=== PATIENT | female | born 2000 | race African-American/Black ===

== ENCOUNTER 2023-01-08 08:59 | Outpatient (AMB) | payer OTHER, SELFPAY ==
--- NOTE | 2023-01-08 09:05 | MHC.PC.OV ---
Vital Signs 01/08/23 09:07 Height 5 ft 9 in Weight 344 lb BMI 50.8 BP 120/70 Blood Pressure Location Lt brachial Position Sitting Intake Visit Reasons: Entry Tech Chronic Care Follow Up ( High Chlosterol ) Intake Note: New patient, establishing care, High Cholesterol Store Assistant Required: No Accompanied by: Self / Same As Patient Allergies Penicillins Allergy (Severe, Verified 01/08/23 09:24) hives, rash Medication List - Last Reconciled 01/08/23 by Cindy Colon MD doxycycline monohydrate 100 mg PO BID pregabalin 150 mg PO BID Tobacco use date assessed: 01/08/23 Dental Screening Dental Screen Date: 01/08/23 Did you have a dental visit in the last 12 months?: Yes Did you have a dental problem in the last 6 months where you did not have access to dental care?: No Was dental information given to patient?: Patient has dentist HPI HPI Comments History of Present Illness Details This is a 22 year old female that comes for her physical exam as new patient. She is morbidly obese with a BMI 50.8 and declines weight loss surgery. Has ADD and was asking for Adderall. I advised her that at the moment I do not feel comfortable with Adderall knowing that she already has a control substance prescribed by [facility] due to her left sciatica which is pregabalin. I will give her atomoxetine. She also has history of dyslipidemia and lipid panel will be order. Pap smear will be done next week with OBGYN. She has moderate major depression follow by counseling. No suicidal thoughts. Left sciatica follow by pain management. [facility] Surgical History History of wisdom tooth extraction Family History Father Liver cirrhosis Diabetes Lois's disease Polyp of stomach Obesity Mother Hypothyroidism Mental health disorder PCOS (polycystic ovarian syndrome) Social History Housing: House Alcohol intake: current Alcohol intake frequency: a few times a month Alcohol type: other Patient Tobacco Use Status: Never used Tobacco e-Cigarette/Vaping Use: Never Used Second Hand Smoke Exposure: No service: No Current occupational status: unemployed Cognitive needs: No Hearing needs: No Vision needs: Yes Questionnaire PHQ-9 Over the last 2 weeks, how often have you been bothered by any of the following problems? 1. Little interest or pleasure in doing things: several days 2. Feeling down, depressed, or hopeless: not at all 3. Trouble falling or staying asleep, or sleeping too much: nearly every day 4. Feeling tired or having little energy: more than half the days 5. Poor appetite or overeating: several days 6. Feeling bad about yourself - or that you are a failure or have let yourself or your family down: several days 7. Trouble concentrating on things, such as reading the newspaper or watching television: nearly every day 8. Moving or speaking so slowly that other people could have noticed. Or the opposite - being so fidgety or restless that you have been moving around a lot more than usual: nearly every day 9. Thoughts that you would be better off or of hurting yourself in some way: not at all Total score: 14 Depression Screening Interpretation: Positive Depression Screening Follow-up: Existing condition and Community Mental Health Worker F/U 84236 - PHQ-9 Billing: Yes Source: Developed by Drs. Tapan Guzman, Amina Sood, Jorden Morgan and colleagues, with an educational santos from [employer]. Thrive Questionnaire Date Thrive assessed: 01/08/23 I am a: Patient What is your living situation today?: I have a steady place to live Within the past 12 months, did the food you bought not last and you didn't have the money to get more?: Never true Within the past 12 months, did you worry whether your food would run out before you got money to buy more?: Never true Do you have trouble paying for medicines?: No Do you have trouble getting transportation to medical appointments?: No Do you have trouble paying your heating and electricity bill?: No Do you have trouble taking care of your child, family member or friend?: No Do you have trouble with day-to-day activities such as bathing, preparing meals, shopping, managing finances, etc.?: No Are you currently unemployed and looking for a job?: No Are you interested in more education?: No Please select the resources that you would like help with: None Currently or been in a relationship where the following occur: no concerns reported AUDIT C Alcohol Use Questionnaire (AUDIT-C) 1. How often do you have a drink containing alcohol?: 2-4 times a month 2. How many drinks containing alcohol do you have on a typical day when you are drinking?: 1 or 2 3. How often do you have six or more drinks on one occasion?: Never Total Score: 2 Score Reviewed/Action Taken: No MIKAYLA-7 AMB Questionnaire MIKAYLA-7 Date MIKAYLA - 7 assessed: 01/08/23 Feeling nervous, anxious, or on edge: 1 = Several days Not being able to stop or control worryin = Several days Worrying too much about different things: 2 = More than half the days Trouble relaxin = Several days Being so restless that it is hard to sit still: 2 = More than half the days Becoming easily annoyed or irritable: 1 = Several days Feeling afraid as if something awful might happen: 0 = Not at all Total MIKAYLA-7 score (0-4 normal; 5-9 mild; 10-14 moderate; 15-21 severe): 8 Source: Developed by Drs. Tapan Guzman, Amina Sood, Jorden Morgan and colleagues, with an educational santos from [employer]. MIKAYLA-7 Assessment Billing MIKAYLA-7 Assessment Tool: MIKAYLA-7 Assessment 15357 Review of Systems Const All systems reviewed & are unremarkable except as noted in HPI and below Eyes Reports no additional complaints, Denies change in vision and Denies other visual disturbances Card Denies chest pain at rest, Denies chest pain with activity, Denies edema, Denies irregular heart rhythm, Denies claudication, Denies dyspnea, Denies dyspnea on exertion, Denies orthopnea, Denies paroxysmal nocturnal dyspnea and Denies slow heart rate Resp Denies cough, Denies dyspnea and Denies dyspnea on exertion GI Denies abdominal pain, Denies change in bowel habits, Denies excessive flatus, Denies nausea and Denies vomiting Denies urinary incontinence, Denies urinary hesitancy and Denies urinary urgency Musc Denies abnormal gait, Denies atrophy, Denies deformity and Denies limited range of motion Skin/Breast Denies bleeding lesions, Denies changing lesions and Denies rash Neuro Denies abnormal gait, Denies confusion and Denies lack of coordination Psych Denies confusion Physical exam (Primary Care) Vital Signs: Last Vital Signs BP 120/70 01/08/23 09:07 BMI result Body Mass Index 50.8 Tobacco/Smoking Status: Tobacco use Status Tobacco use date assessed 01/08/23 01/08/23 09:17 Patient Tobacco Use Status Never used Tobacco 01/08/23 09:17 e-Cigarette/Vaping Use Never Used 01/08/23 09:17 PHQ-9: PHQ-9 Score PHQ-9: Total score 14 01/08/23 09:17 Depression Screening Interpretation: Positive Depression Screening Follow-up: Existing condition and Community Mental Health Worker F/U Thrive Assessment: Date of Thrive Assessment Date Thrive assessed 01/08/23 01/08/23 09:17 Currently or been in a relationship where the following occur: no concerns reported Const General: No confusion Orientation/consciousness: patient oriented x3 and No confusion HENMT Head: Yes normal to inspection, Yes normocephalic and Yes atraumatic Ears: external ears normal Eyes General: appearance normal, both eyes and all related structures Eyelids: Yes eyelids normal Conjunctivae: conjunctivae normal Neck Neck: Yes normal visual inspection and Yes supple Resp Effort & Inspection: normal respiratory effort Auscultation: clear to auscultation bilaterally Cardio Jugular venous distension: no JVD Rate: regular rate Rhythm: regular rhythm Heart sounds: S1 normal heart sound present and S2 normal heart sound present GI Inspection: Yes normal to inspection Palpation (GI): Soft to palpation and nontender Auscultation: normal bowel sounds Skin General skin exam: no rashes or lesions noted Neuro General: patient oriented x3, no focal motor deficits and No confusion Extrem General: Yes full ROM Psych Appearance: grossly normal Assessment and Plan Assessment & Plan (1) Physical exam: Code(s): Z00.00 - Encounter for general adult medical examination without abnormal findings Plan: Repeat in a year (2) Morbid obesity with BMI of 50.0-59.9, adult: Code(s): E66.01 - Morbid (severe) obesity due to excess calories; Z68.43 - Body mass index [BMI] 50.0-59.9, adult Plan: Start diet and exercise. BMI goal is less than 30. Patient declines weight loss surgery. (3) Moderate major depression: Comment: Follow by behavioral therapist Code(s): F32.1 - Major depressive disorder, single episode, moderate Plan: Continue counseling. Orders: Orders Comprehensive Met. Panel Today Z00.00 - Encounter for general adult medical examination without abnormal findings Complete Blood Count Auto Diff Today E66.01 - Morbid (severe) obesity due to excess calories, Z68.43 - Body mass index [BMI] 50.0-59.9, adult Lipid Panel Today E78.5 - Hyperlipidemia, unspecified Thyroid Stimulating Hormone Today E66.01 - Morbid (severe) obesity due to excess calories, Z68.43 - Body mass index [BMI] 50.0-59.9, adult Medications: New atomoxetine 40 mg PO DAILY 90 days 90 caps 0RF F98.8 - Other specified behavioral and emotional disorders with onset usually occurring in childhood and adolescence atomoxetine 40 mg PO DAILY 90 days 90 caps 0RF F98.8 - Other specified behavioral and emotional disorders with onset usually occurring in childhood and adolescence Coding Level of Care Code New Pt Prev Care 18-39yr([id number] Diagnoses Physical exam Z00.00 Morbid obesity with BMI of 50.0-59.9, adult E66.01; Z68.43 Moderate major depression F32.1 Additional Codes MIKAYLA-7 Assessment Billing - MIKAYLA-7 Assessment Tool: MIKAYLA-7 Assessment 47951 ([id number]) Time Spent (min) 35
[2023-01-08 09:07] VITALS: BP 120/70; BMI 50.8
== END 2023-01-08 09:37 | disposition home or self-care (01) ==
PROVIDERS: PCP Internal Medicine; Visit Provider Internal Medicine
DX: Z00.00 Encounter for general adult medical examination without abnormal findings (principal); E66.01 Morbid (severe) obesity due to excess calories; Z68.43 Body mass index [BMI] 50.0-59.9, adult; F32.1 Major depressive disorder, single episode, moderate
CPT/HCPCS: 99385

== ENCOUNTER 2023-01-15 11:32 | Outpatient (REF) | payer OTHER, SELFPAY ==
[2023-01-15 13:39] LABS: MANUAL DIFF FLAG NO
[2023-01-15 13:51] LABS: Basophils Percent Auto 0.4 % (0-2); Eosinophils Absolute Auto 0.1 X10*3/uL (0.0-0.4); Hematocrit 41.4 % (37.0-47.0); Hemoglobin 13.3 g/dl (12.0-16.0); Imm Gran Abs Auto 0.03 X10*3/uL (0.00-0.03); Imm Gran Pct Auto 0.4 % (0.0-0.4); Lymphocytes Absolute Auto 2.3 X10*3/uL (1.2-4.9); Lymphocytes Percent Auto 32.2 % (20-40); Mean Corpuscular HGB Conc 32.1 g/dl (31.0-35.0); Mean Corpuscular Hemoglobin 26.7 pg (27.0-33.0); Mean Corpuscular Volume 83.1 fL (80.0-98.0); Mean Platelet Volume 9.5 fL (9.4-12.3); Monocytes Absolute Auto 0.3 X10*3/uL (0.1-1.2); Monocytes Percent Auto 4.9 % (2-11); Neutrophils Absolute Auto 4.2 x10*3/uL (2.0-8.3); Neutrophils Percent Auto 60.1 % (45-73); Platelet Count 214 X10*3/uL (160-400); Red Blood Count 4.98 X10*6/uL (4.20-5.50); Red Cell Distribution Width 13.5 % (11.0-16.0)
[2023-01-15 14:50] LABS: Alanine Aminotransferase 18 U/L (0-31); Albumin Level 4.1 g/dL (3.5-5.0); Alkaline Phosphatase 90 U/L (39-117); Anion Gap 10 (12-20); Aspartate Amino Transferase 17 U/L (5-31); Bilirubin Total 0.6 mg/dL (0.0-1.0); Blood Urea Nitrogen 15 mg/dL (9-16); Calcium 9.7 mg/dL (8.4-10.2); Carbon Dioxide 26 mmol/L (22-29); Chloride 108 mmol/L (96-108); Cholesterol 262 mg/dL (<200); Estimated Glomerular Filt Rate > 60; Glucose Random 102 mg/dL (60-115); HDL Cholesterol 39 mg/dL (>40); LDL Cholesterol Calculated 198 mg/dL (<100); Potassium 3.9 mmol/L (3.3-5.1); Sodium 140 mmol/L (135-145); Total Protein 6.7 g/dL (6.5-8.0); Triglycerides 125 mg/dL (<150)
[2023-01-15 14:52] LABS: Thyroid Stimulating Hormone 4.16 uIU/mL (0.32-4.0)
== END 2023-01-15 11:33 | disposition home or self-care (01) ==
LOC: HO.10HDL 11:32
PROVIDERS: Visit Provider Internal Medicine
DX: Z00.00 Encounter for general adult medical examination without abnormal findings (principal); E66.01 Morbid (severe) obesity due to excess calories; Z68.43 Body mass index [BMI] 50.0-59.9, adult; E78.5 Hyperlipidemia, unspecified
CPT/HCPCS: 36415; 80053; 80061; 84443; 85025

== ENCOUNTER 2023-06-27 15:31 | Outpatient (AMB) | payer OTHER, SELFPAY ==
[2023-06-27 15:36] VITALS: BP 116/72; PULSE 94; RESP 15; TEMP 36.5; O2SAT 99; BMI 50.8
--- NOTE | 2023-06-27 15:36 | A.OFFVIS_ITS ---
Intake Vital Signs 06/27/23 15:36 Height 5 ft 8 in Weight 334 lb 3.532 oz BMI 50.8 BP 116/72 Blood Pressure Location Rt brachial Position Sitting Respiration 15 Pulse 94 Pulse Source Pulse Oximeter Temp 97.7 F Temp Source Skin Pulse Oximetry (%) 99 Oxygen Delivery Method Room Air Intake Visit Reasons: Sciatica, left side Library Science Instructor Required: No Allergies amoxicillin Allergy (Severe, Verified 06/27/23 15:40) Hives Penicillins Allergy (Severe, Verified 06/27/23 15:40) hives, rash Medication List - Last Reconciled 06/27/23 by Maryana Ledezma, RN dextroamphetamine-amphetamine 15 mg ER (Adderall XR) 1 cap PO QAM fluoxetine 10 mg PO DAILY ibuprofen 800 mg PO TID HPI HPI Comments History of Present Illness Details Ms. Brooks 23-year-old female presents as a new patient for evaluation of joint pain. The patient describes that her pain has been ongoing for many years. She also has joint hypermobility. She denies joint swelling, redness and warmth. She has not had rashes, denies sun sensitivity, and autoimmune GI issues. 01/08/2023 PCP Visit This is a 22 year old female that comes for her physical exam as new patient. She is morbidly obese with a BMI 50.8 and declines weight loss surgery. Has ADD and was asking for Adderall. I advised her that at the moment I do not feel comfortable with Adderall knowing that she already has a control substance prescribed by [facility] due to her left sciatica which is pregabalin. I will give her atomoxetine. She also has history of dyslipidemia and lipid panel will be order. Pap smear will be done next week with OBGYN. She has moderate major depression follow by counseling. No suicidal thoughts. Left sciatica follow by pain management. [facility] Medical History (Updated 07/02/23 @ 16:16 by RIC Red) Hypermobile joint syndrome of multiple sites Pain in joint involving multiple sites Surgical History History of wisdom tooth extraction Family History Father Liver cirrhosis Diabetes Lois's disease Polyp of stomach Obesity Mother Hypothyroidism Mental health disorder PCOS (polycystic ovarian syndrome) Social History Housing: House Alcohol intake: current Alcohol intake frequency: a few times a month Alcohol type: other Patient Tobacco Use Status: Never used Tobacco e-Cigarette/Vaping Use: Never Used Second Hand Smoke Exposure: No service: No Current occupational status: unemployed Cognitive needs: No Hearing needs: No Vision needs: Yes Review of Systems Const All systems reviewed & are unremarkable except as noted in HPI and below Physical Exam Vital Signs: Last Vital Signs Temp 97.7 F 06/27/23 15:36 Pulse 94 06/27/23 15:36 Resp 15 06/27/23 15:36 BP 116/72 06/27/23 15:36 Pulse Ox 99 06/27/23 15:36 Oxygen Delivery Method Room Air 06/27/23 15:36 BMI result Body Mass Index 50.8 Results Reviewed Results Reviewed: Laboratory Tests 01/15/23 11:40 Creatinine 0.85 AST 17 ALT 18 Triglycerides 125 Cholesterol 262 H LDL Cholesterol, Calc 198 H HDL Cholesterol 39 L TSH 4.16 H Assessment & Plan Assessment & Plan (1) Elevated TSH: Code(s): R79.89 - Other specified abnormal findings of blood chemistry (2) Left sided sciatica: Code(s): M54.32 - Sciatica, left side (3) Morbid obesity with BMI of 50.0-59.9, adult: Code(s): E66.01 - Morbid (severe) obesity due to excess calories; Z68.43 - Body mass index [BMI] 50.0-59.9, adult (4) Pain in joint involving multiple sites: Code(s): M25.50 - Pain in unspecified joint (5) Hypermobile joint syndrome of multiple sites: Code(s): M24.80 - Other specific joint derangements of unspecified joint, not elsewhere classified Plan # multiple joint pain/hyper mobile joint/morbid obesity: After careful initial review of history, available diagnostics and PE I do not see a clinical presentation for an inflammatory pathology. I will obtain labs to evaluate further. The patient says she has had xrays of her knees that showed osteoarthritis. I do not have those available but will reach out to obtain. The patient does present like hypermobility with Beighton score 4/5. There is no real treatment for that but we did discuss the implications and recommended activities for joint preservation and encouraged her not to over stretch her joints. Patient will also do some research. Weight loss could also improve her joint concerns Patient says that her TSH is being addressed by primary. I spent 45 minutes researching history, evaluating and assessing patient, and documenting Orders: Orders Anti Extractable Nuclear Ag 06/27/23 M25.50 - Pain in unspecified joint Anti DNA DS Antibody 06/27/23 M25.50 - Pain in unspecified joint Complete Blood Count Auto Diff 06/27/23 M25.50 - Pain in unspecified joint Comprehensive Met. Panel 06/27/23 M25.50 - Pain in unspecified joint Creatine Kinase Total 06/27/23 M25.50 - Pain in unspecified joint Thiopurine Methyltransferase 06/27/23 M25.50 - Pain in unspecified joint Rheumatoid Factor 06/27/23 M25.50 - Pain in unspecified joint Cyclic Citrullinated Peptide 06/27/23 M25.50 - Pain in unspecified joint TITUS Reflex Titer and Pattern 06/27/23 M25.50 - Pain in unspecified joint C Reactive Protein 06/27/23 M25.50 - Pain in unspecified joint Erythrocyte Sedimentation Rate 06/27/23 M25.50 - Pain in unspecified joint Immunoglobulins,IgG IgA IgM 06/27/23 M25.50 - Pain in unspecified joint Sjogren's Antibodies 06/27/23 M25.50 - Pain in unspecified joint Coding Level of Care Code New Pt Level 4 (59707) Diagnoses Elevated TSH R79.89 Left sided sciatica M54.32 Morbid obesity with BMI of 50.0-59.9, adult E66.01; Z68.43 Pain in joint involving multiple sites M25.50 Hypermobile joint syndrome of multiple sites M24.80
== END 2023-06-27 16:43 | disposition home or self-care (01) ==
PROVIDERS: PCP Internal Medicine; Visit Provider Nurse Practitioner Family
DX: R79.89 Other specified abnormal findings of blood chemistry (principal); M54.32 Sciatica, left side; E66.01 Morbid (severe) obesity due to excess calories; Z68.43 Body mass index [BMI] 50.0-59.9, adult; M25.50 Pain in unspecified joint; M24.80 Other specific joint derangements of unspecified joint, not elsewhere classified
CPT/HCPCS: 99204

== ENCOUNTER → 2023-06-27 15:31 | Outpatient (BNVA) | payer OTHER, SELFPAY | PROVIDERS: PCP Internal Medicine; Visit Provider Nurse Practitioner Family | DX: M54.32 Sciatica, left side (principal); M25.50 Pain in unspecified joint; M24.80 Other specific joint derangements of unspecified joint, not elsewhere classified; E66.01 Morbid (severe) obesity due to excess calories; R79.89 Other specified abnormal findings of blood chemistry; Z68.43 Body mass index [BMI] 50.0-59.9, adult | CPT/HCPCS: 99202 ==

== ENCOUNTER 2023-07-05 09:37 | Outpatient (REF) | payer OTHER, SELFPAY ==
[2023-07-05 11:16] LABS: MANUAL DIFF FLAG NO
[2023-07-05 11:44] LABS: Basophils Percent Auto 0.3 % (0-2); Eosinophils Absolute Auto 0.2 X10*3/uL (0.0-0.4); Eosinophils Percent Auto 2.3 % (0-4); Hematocrit 39.2 % (37.0-47.0); Hemoglobin 12.6 g/dl (12.0-16.0); Imm Gran Abs Auto 0.03 X10*3/uL (0.00-0.03); Imm Gran Pct Auto 0.5 % (0.0-0.4); Lymphocytes Absolute Auto 1.6 X10*3/uL (1.2-4.9); Lymphocytes Percent Auto 24.5 % (20-40); Mean Corpuscular HGB Conc 32.1 g/dl (31.0-35.0); Mean Corpuscular Hemoglobin 25.9 pg (27.0-33.0); Mean Corpuscular Volume 80.5 fL (80.0-98.0); Monocytes Absolute Auto 0.3 X10*3/uL (0.1-1.2); Monocytes Percent Auto 3.9 % (2-11); Neutrophils Absolute Auto 4.6 x10*3/uL (2.0-8.3); Neutrophils Percent Auto 68.5 % (45-73); Platelet Count 237 X10*3/uL (160-400); Red Blood Count 4.87 X10*6/uL (4.20-5.50); Red Cell Distribution Width 13.9 % (11.0-16.0); White Blood Count 6.7 X10*3/uL (4.8-10.8)
[2023-07-05 11:48] LABS: Erythrocyte Sedimentation Rate 23 MM/HR (0-20)
[2023-07-05 12:04] LABS: Rheumatoid Factor < 13.0 IU/mL (<15.0)
[2023-07-05 12:37] LABS: Anion Gap 10 (12-20); Free T4 (Free Thyroxine) 0.92 ng/dL (0.71-1.85); Thyroid Stimulating Hormone 4.07 uIU/mL (0.32-4.0)
[2023-07-05 12:42] LABS: Alanine Aminotransferase 14 U/L (0-31); Albumin Level 3.8 g/dL (3.5-5.0); Alkaline Phosphatase 100 U/L (39-117); Aspartate Amino Transferase 12 U/L (5-31); Bilirubin Total 0.4 mg/dL (0.0-1.0); Blood Urea Nitrogen 13 mg/dL (9-16); C Reactive Protein 2.43 mg/dL (< or = 0.50); Calcium 8.9 mg/dL (8.4-10.2); Carbon Dioxide 26 mmol/L (22-29); Chloride 108 mmol/L (96-108); Estimated Glomerular Filt Rate > 60; Glucose Random 110 mg/dL (60-115); Potassium 3.9 mmol/L (3.3-5.1); Sodium 140 mmol/L (135-145); Total Protein 6.5 g/dL (6.5-8.0)
[2023-07-06 17:14] LABS: IgA 50 mg/dL (47-310); IgG 738 mg/dL (600-1640); IgM 61 mg/dL (50-300)
[2023-07-06 18:09] LABS: Anti DNA DS Antibody <1 IU/mL; Antibody to SS-A Antigen <1.0 NEG AI (<1.0 NEG); Antibody to SS-B Antigen <1.0 NEG AI (<1.0 NEG); SM/Ribonucleoprotein Ab <1.0 NEG AI (<1.0 NEG); Smith Protein <1.0 NEG AI (<1.0 NEG)
[2023-07-06 23:54] LABS: Thyroglobulin Antibodies 1 IU/mL (< or = 1); Thyroid Peroxidase Antibodies 49 IU/mL (<9)
[2023-07-10 15:24] LABS: Anti Nuclear Antibody Pattern Nuclear, Homogeneous; Anti Nuclear Antibody Screen POSITIVE (NEGATIVE)
[2023-07-11 11:23] LABS: Cyclic Citrullinated Peptide <16 UNITS
[2023-07-26 12:48] LABS: TPMT Activity 15
== END 2023-07-05 09:38 | disposition home or self-care (01) ==
LOC: HO.WFDLDS 09:37
PROVIDERS: Referring Provider Internal Medicine; Visit Provider Nurse Practitioner Family
DX: R79.89 Other specified abnormal findings of blood chemistry (principal); M25.50 Pain in unspecified joint
CPT/HCPCS: 36415; 80053; 82550; 82784; 84433; 84439; 84443; 85025; 85652; 86038; 86039; 86140; 86200; 86225; 86235; 86376; 86431; 86800

== ENCOUNTER 2023-07-26 10:17 | Outpatient (AMB) | payer OTHER, SELFPAY ==
--- NOTE | 2023-07-26 10:18 | A.OFFVIS_ITS ---
Intake Vital Signs 07/26/23 10:24 Height 5 ft 8 in Weight 336 lb 10.334 oz BMI 51.2 BP 100/80 Blood Pressure Location Rt brachial Position Sitting Pulse 94 Pulse Source Pulse Oximeter Temp 97 F Temp Source Skin Pulse Oximetry (%) 94 Oxygen Delivery Method Room Air Intake Visit Reasons: Joint Pain/LVM Intake Note: Patient last seen 06/27/23 by Hoang, presents today for follow up and test results. Crystalizer Tender Required: No Allergies amoxicillin Allergy (Severe, Verified 07/26/23 10:18) Hives Penicillins Allergy (Severe, Verified 07/26/23 10:18) hives, rash HPI HPI Comments History of Present Illness Details Ms. Cecilia Starks-year-old female returns to review labs and next steps. She had no new hospitalization or illnesses since last visit. Initial History: Ms. Cecilia Starks-year-old female presents as a new patient for evaluation of joint pain. The patient describes that her pain has been ongoing for many years. She also has joint hypermobility. She denies joint swelling, redness and warmth. She has not had rashes, denies sun sensitivity, and autoimmune GI issues. 01/08/2023 PCP Visit This is a 22 year old female that comes for her physical exam as new patient. She is morbidly obese with a BMI 50.8 and declines weight loss surgery. Has ADD and was asking for Adderall. I advised her that at the moment I do not feel comfortable with Adderall knowing that she already has a control substance prescribed by [facility] due to her left sciatica which is pregab julia. I will give her atomoxetine. She also has history of dyslipidemia and lipid panel will be order. Pap smear will be done next week with OBGYN. She has moderate major depression follow by counseling. No suicidal thoughts. Left sciatica follow by pain management. 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 Pain in joint involving multiple sites Surgical History History of wisdom tooth extraction Family History Father Liver cirrhosis Diabetes Lois's disease Polyp of stomach Obesity Mother Hypothyroidism Mental health disorder PCOS (polycystic ovarian syndrome) Social History Housing: House Alcohol intake: current Alcohol intake frequency: a few times a month Alcohol type: other Patient Tobacco Use Status: Never used Tobacco e-Cigarette/Vaping Use: Never Used Second Hand Smoke Exposure: No service: No Current occupational status: unemployed Cognitive needs: No Hearing needs: No Vision needs: Yes Review of Systems Const All systems reviewed & are unremarkable except as noted in HPI and below Physical Exam Vital Signs: Last Vital Signs Temp 97 F 07/26/23 10:24 Pulse 94 07/26/23 10:24 BP 100/80 07/26/23 10:24 Pulse Ox 94 07/26/23 10:24 Oxygen Delivery Method Room Air 07/26/23 10:24 BMI result Body Mass Index 51.2 Vital signs reviewed. Constitutional: Non-toxic appearing. No acute distress. Well-developed and well-nourished. HEENT: Normocephalic and atraumatic. External auditory canals without erythema or edema bilaterally. Dry mucous membranes. No pharyngeal erythema or exudates. Skin: Warm and dry. No rashes or lesions noted. Neck: Full and painless range of motion. No cervical lymphadenopathy. Cardio: Regular rate and rhythm. No murmurs, gallops, or rubs. No lower extremity edema. No JVD. Pulmonary: No respiratory distress. No accessory muscle usage. Gastrointestinal: Soft, nontender, and nondistended in all 4 quadrants. Normoactive bowel sounds in all 4 quadrants. Genitourinary: No CVA tenderness. Musculoskeletal: Normal range of motion in joints throughout the body. knee valgus deformity . Neuro: Alert and oriented x4. Cranial nerves 2-12 grossly intact. No focal deficits appreciated. Results Reviewed Results Reviewed: Laboratory Tests 07/05/23 09:40 ESR 23 H AST 12 ALT 14 C-Reactive Protein 2.43 H IgG Total 738 IgA Total 50 IgM 61 Rheumatoid Factor < 13.0 CINDY Titer 1:80 H Thyroid Peroxidase Ab 49 H Assessment & Plan Assessment & Plan (1) Elevated TSH: Code(s): R79.89 - Other specified abnormal findings of blood chemistry (2) Left sided sciatica: Code(s): M54.32 - Sciatica, left side (3) Morbid obesity with BMI of 50.0-59.9, adult: Code(s): E66.01 - Morbid (severe) obesity due to excess calories; Z68.43 - Body mass index [BMI] 50.0-59.9, adult (4) Pain in joint involving multiple sites: Code(s): M25.50 - Pain in unspecified joint (5) Hypermobile joint syndrome of multiple sites: Code(s): M24.80 - Other specific joint derangements of unspecified joint, not elsewhere classified Plan #Multiple joint pain/hyper mobile joint/morbid obesity: After careful initial review of history, available diagnostics and PE, I do not see a clinical presentation for an inflammatory pathology. Labs are +CINDY (1:80) most likely due to +TPO and ENAs are negative. The ESR/CRP are elevated and the TSH remains mildy elevated. Patient reports she was diagnosed with Hashimotos during childhood but has never been treated. She desires to be seen by Endocrine. PCP has a recheck of TSH pending. She will also look into being referred to a Music Industry Internship and will pursue with PCP. I spent 20 minutes reviewing labs, discussing with patient, and documenting. P/u PRN Orders: Referrals Endocrinology Referral R53.81 - Other malaise, R53.82 - Chronic fatigue, unspecified, R76.8 - Other specified abnormal immunological findings in serum, Z86.39 - Personal history of other endocrine, nutritional and metabolic disease Coding Level of Care Code Est Pt Level 3 (85855) Diagnoses Elevated TSH R79.89 Left sided sciatica M54.32 Morbid obesity with BMI of 50.0-59.9, adult E66.01; Z68.43 Pain in joint involving multiple sites M25.50 Hypermobile joint syndrome of multiple sites M24.80
[2023-07-26 10:24] VITALS: BP 100/80; PULSE 94; TEMP 36.1; O2SAT 94; BMI 51.2
== END 2023-07-26 10:39 | disposition home or self-care (01) ==
PROVIDERS: PCP Internal Medicine; Visit Provider Nurse Practitioner Family
DX: R79.89 Other specified abnormal findings of blood chemistry (principal); M54.32 Sciatica, left side; E66.01 Morbid (severe) obesity due to excess calories; Z68.43 Body mass index [BMI] 50.0-59.9, adult; M25.50 Pain in unspecified joint; M24.80 Other specific joint derangements of unspecified joint, not elsewhere classified
CPT/HCPCS: 99213

== ENCOUNTER → 2023-07-26 10:17 | Outpatient (BNVA) | payer OTHER, SELFPAY | PROVIDERS: PCP Internal Medicine; Visit Provider Nurse Practitioner Family | DX: R79.89 Other specified abnormal findings of blood chemistry (principal); M54.32 Sciatica, left side; M25.50 Pain in unspecified joint; M24.80 Other specific joint derangements of unspecified joint, not elsewhere classified; E66.01 Morbid (severe) obesity due to excess calories; Z68.43 Body mass index [BMI] 50.0-59.9, adult | CPT/HCPCS: 99212 ==

== ENCOUNTER 2023-08-17 08:42 | Outpatient (AMB) | payer OTHER, SELFPAY ==
--- NOTE | 2023-08-17 08:50 | A.OFFPC_ITS ---
Vital Signs 08/17/23 09:00 Height 5 ft 9 in Weight 337 lb BMI 49.8 BP 111/73 Blood Pressure Location Rt brachial Position Sitting Respiration 11 L Pulse 77 Pulse Source Pulse Oximeter Temp 98.4 F Temp Source Temporal Artery Scan Pulse Oximetry (%) 98 Oxygen Delivery Method Room Air Intake Visit Reasons: FELIX from Ok Intake Note: Patient is transferring care from Dr. Euceda to Raine Callahan. Patient reports she had been discussing roddy danlos syndrome with Dr. Euceda and she wanted to continue discussing this with new provider. Patient reports she is seeing a psychiatrist with [facility]. Check Totaler Required: No Allergies amoxicillin Allergy (Severe, Verified 08/17/23 09:20) Hives Penicillins Allergy (Severe, Verified 08/17/23 09:20) hives, rash Medication List - Last Reconciled 08/17/23 by Raine Feldman, HUMANITIES PROFESSOR-BC dextroamphetamine-amphetamine 15 mg ER (Adderall XR) 1 cap PO QAM fluoxetine 10 mg PO DAILY ibuprofen 800 mg PO TID levonorgestrel (Liletta) intrauterine Tobacco use date assessed: 08/17/23 Dental Screening Dental Screen Date: 08/17/23 Did you have a dental visit in the last 12 months?: Yes Did you have a dental problem in the last 6 months where you did not have access to dental care?: No Was dental information given to patient?: Patient has dentist HPI HPI Comments History of Present Illness Details 23-year-old female with Roddy Danlos Sy ndrome, MDD, ADD, dyslipidemia, obesity suppurative hidradenitis, sciatica, TITUS positive, PCOS, generalized anxiety disorder, PTSD, recurrent syncope idiopathic intracranial hypertension Specialists Neurology - no longer following Rheumatology - no longer following [facility] in [place], [employer] Endocrinology - [facility] Ophthalmology q 6 months Health maintenance pap Labs from 07/05/2023 show a normal CBC, elevated ESR at 23, normal CMP, elevated C-reactive protein 2.43, TSH 4.07, normal T4 0.92 positive TITUS and TPO antibodies Lipid profile 01/15/2023 show elevated total cholesterol 262, LDL 198, HDL 39 Here today to est care for a CPE: Life long hypermobility; frequent dislocations of most joints; chronic pain in joints. Treated for hernia disc causing sciatica. This helped the sciatica but not her other joint pain. Has never seen genetics. States Maternal side of family has similar sx; has never been tested for EDS. Reports Echo done and WNL as far as she is aware; i do not have this record. September 2022 while hospitalized for syncope. Also has recurrent syncope. Last hospital admission 04/2023. Is not active w/ Cards at this time Was ff'd by [facility] - aged out. Not currently being ff'd for her intracranial htn. q 6 month Optho appts; No migraines. Admits stress/tensions headaches. Has diarrhea at times. [facility] Medical History Chronic fatigue and malaise Thyroid antibody positive Hx of Lois thyroiditis Hypermobile joint syndrome of multiple sites Pain in joint involving multiple sites Surgical History History of wisdom tooth extraction Family History Father Liver cirrhosis Diabetes Lois's disease Polyp of stomach Obesity Mother Hypothyroidism Mental health disorder PCOS (polycystic ovarian syndrome) Social History (Updated 08/17/23 @ 08:56 by Sarahy Pena CMA) Household Members: Family Housing: House Are you a primary home health care worker to a significant other at home: No Do you presently have visiting nurse or other home services: No 75 years or older and lives alone: No Alcohol intake: current Alcohol intake frequency: a few times a month Alcohol type: other Patient Tobacco Use Status: Never used Tobacco e-Cigarette/Vaping Use: Never Used Second Hand Smoke Exposure: No Substance Use Type: Marijuana service: No Current occupational status: unemployed Current occupation: Laid off from [employer] Current occupational exposures/hazards: No Cognitive needs: No Hearing needs: No Vision needs: Yes (wears glasses) Questionnaire PHQ-9 Over the last 2 weeks, how often have you been bothered by any of the following problems? 1. Little interest or pleasure in doing things: several days 2. Feeling down, depressed, or hopeless: not at all 3. Trouble falling or staying asleep, or sleeping too much: more than half the days 4. Feeling tired or having little energy: more than half the days 5. Poor appetite or overeating: not at all 6. Feeling bad about yourself - or that you are a failure or have let yourself or your family down: not at all 7. Trouble concentrating on things, such as reading the newspaper or watching television: nearly every day 8. Moving or speaking so slowly that other people could have noticed. Or the opposite - being so fidgety or restless that you have been moving around a lot more than usual: not at all 9. Thoughts that you would be better off or of hurting yourself in some wa y: not at all Total score: 8 Depression Screening Interpretation: Positive Depression Screening Follow-up: Existing condition and In treatment Depression Screening Done: Yes 35467 - PHQ-9 Billing: Yes Source: Developed by Drs. Tapan Guzman, Amina Sood, Jorden Morgan and colleagues, with an educational santos from [employer]. Thrive Questionnaire Date Thrive assessed: 01/08/23 I am a: Patient What is your living situation today?: I have a place to live, but I am worried about losing it in the future Within the past 12 months, did the food you bought not last and you didn't have the money to get more?: Sometimes True Within the past 12 months, did you worry whether your food would run out before you got money to buy more?: Often true Do you have trouble paying for medicines?: I choose not to answer this question Do you have trouble getting transportation to medical appointments?: I choose not to answer this question Do you have trouble paying your heating and electricity bill?: I choose not to answer this question Do you have trouble taking care of your child, family member or friend?: I choose not to answer this question Do you have trouble with day-to-day activities such as bathing, preparing meals, shopping, managing finances, etc.?: I choose not to answer this question Are you currently unemployed and looking for a job?: I choose not to answer this question Are you interested in more education?: I choose not to answer this question Please select the resources that you would like help with: None Currently or been in a relationship where the following occur: no concerns reported THRIVE Score: 3 AUDIT C Alcohol Use Questionnaire (AUDIT-C) 1. How often do you have a drink containing alcohol?: Monthly or less 2. How many drinks containing alcohol do you have on a typical day when you are drinking?: 1 or 2 3. How often do you have six or more drinks on one occasion?: Never Total Score: 1 Score Reviewed/Action Taken: Yes MIKAYLA-7 AMB Questionnaire MIKAYLA-7 Date MIKAYLA - 7 assessed: 08/17/23 Feeling nervous, anxious, or on edge: 1 = Several days Not being able to stop or control worryin = Several days Worrying too much about different things: 1 = Several days Trouble relaxin = More than half the days Being so restless that it is hard to sit still: 1 = Several days Becoming easily annoyed or irritable: 1 = Several days Feeling afraid as if something awful might happen: 2 = More than half the days Total MIKAYLA-7 score (0-4 normal; 5-9 mild; 10-14 moderate; 15-21 severe): 9 Source: Developed by Drs. Tapan Guzman, Amina Sood, Jorden Morgan and colleagues, with an educational santos from [employer]. MIKAYLA-7 Assessment Billing MIKAYLA-7 Assessment Tool: MIKAYLA-7 Assessment 42655 Review of Systems Const Details: Constitutional: Denies fever. Skin: Denies rash. Eye: Denies eye pain. ENMT: Denies sore throat and nasal congestion. Respiratory: Denies shortness of breath and cough. Gastrointestinal: Denies nausea, vomiting or abdominal pain. Cardiovascular: Denies chest pain and syncope. Genitourinary: Denies dysuria. Neurologic: Denies headaches, confusion, and weakness. Psychiatric: Denies suicidal thoughts and substance abuse. Allergy/ Immunologic: Denies impaired immunity. Physical exam (Primary Care) Vital Signs: Last Vital Signs Temp 98.4 F 08/17/23 09:00 Pulse 77 08/17/23 09:00 Resp 11 L 08/17/23 09:00 BP 111/73 08/17/23 09:00 Pulse Ox 98 08/17/23 09:00 Oxygen Delivery Method Room Air 08/17/23 09:00 BMI result Body Mass Index 49.8 BMI Assessment/Plan discussion: High BMI High, discussed plan: lifestyle Tobacco/Smoking Status: Tobacco use Status Tobacco use date assessed 08/17/23 08/17/23 08:54 Patient Tobacco Use Status Never used Tobacco 08/17/23 08:56 e-Cigarette/Vaping Use Never Used 08/17/23 08:56 PHQ-9: PHQ-9 Score PHQ-9: Total score 8 08/17/23 08:58 Depression Screening Interpretation: Positive Depression Screening Follow-up: Existing condition and In treatment Thrive Assessment: Date of Thrive Assessment Date Thrive assessed 01/08/23 08/17/23 08:54 Currently or been in a relationship where the following occur: no concerns reported Advance Care Planning discussion: Exists, not on file Date of discussion: 08/17/23 Forms completed: Health Care Proxy and MOLST Time spent: 1-15 minutes, not on file Actual minutes spent: 3 Const Other: General: Well developed, well nourished, in no acute distress. Appears stated age. Head: Normocephalic, atraumatic. Eyes: Pupils are equal, round and reactive to light and accommodation. Conjunctivae are clear. Vision grossly normal. Ears: TMs clear AU, EACS WNL Nose: Patent, without discharge. Mouth: There are no ulcers or lesions noted. No inflammation, no post nasal drip, no plaques nor exudates. Neck: Supple, no adenopathy or thyromegaly. Lungs: Clear to auscultation bilaterally. No rales, rhonchi or wheeze noted. Good air flow in all keyes. Heart: Regular rate and rhythm. No murmurs, click, rubs or gallops are noted. Abdomen: Bowel sounds present in all quadrants. DURING PALPATION OF RUQ, PT C/O PAIN. THIS IS IN AN AREA WHERE I CAN PALPATE A FIRM, NONMOBILE MASS, BELOW THE RIB CAGE. THERE IS SOME CREPITUS WITH PALPATION. NO REBOUND TENDERNESS. NO EPIGASTRIC TENDERNESS. NO HERNIA. Musculoskeletal: Joints are TENDER AND HYPERMOBILE, without swelling, redness, or effusions. Range of motion is observed to be HYPERMOBILE. Pulses: Peripheral pulses are equal and palpable bilaterally. Extremities: No clubbing, cyanosis nor edema is noted. Neurologic: Gait and station normal. Cranial Nerves 2-12 intact. Motor strength grossly symmetrical and intact. No sensory loss. Balance normal. Skin: No rashes, ulcers, or lesions noted. Turgor is good. Skin color is good. Hair and nails are without abnormalities. Psych: Normal eye contact, affect and mood appropriate, and normal interactions. Patient is alert and appropriate to context. Assessment and Plan Assessment & Plan (1) Encounter for general adult medical examination with abnormal findings: Code(s): Z00.01 - Encounter for general adult medical examination with abnormal findings (2) Syncope and collapse: Comment: ongoing for years, worse since onset. Echo UTD. Has never had tilt table Will order. Advised to drink at least 3L of liquids, preferably fluid with Na+ like gatorade and wear tight compression leggings; slow position changes. Code(s): R55 - Syncope and collapse (3) Dyslipidemia: Comment: update Lipid profile today Code(s): E78.5 - Hyperlipidemia, unspecified (4) Hx of Lois thyroiditis: Comment: check TSH today ff'd by Endo Code(s): Z86.39 - Personal history of other endocrine, nutritional and metabolic disease (5) RUQ abdominal mass: Comment: incidental finding on exam today with pain. Check labs and order US. If needed, check CT. Will bring back to discuss findings Code(s): R19.01 - Right upper quadrant abdominal swelling, mass and lump (6) Hypermobile joint syndrome of multiple sites: Comment: concerning picture for EDS [facility] in [place] is not accepting patients for screening. They recommend using [facility] labs. Pt is agreeable to genetic workup through [facility] Code(s): M24.80 - Other specific joint derangements of unspecified joint, not elsewhere classified (7) Pain in joint involving multiple sites: Comment: see Hypermobile care plan Code(s): M25.50 - Pain in unspecified joint (8) Moderate major depression: Comment: Follow by behavioral therapist & counselor Cont care Code(s): F32.1 - Major depressive disorder, single episode, moderate Plan 30 minutes of time was spent above and beyond the required time needed for a We llness Physical Exam. This additional time was used to develop a plan of care, discuss findings with patient, etc. This includes time spent before the visit reviewing the chart, time spent during the visit, and time spent after the visit on documentation Orders: Orders ECG Tilt Table Test Today R55 - Syncope and collapse Amylase Today E78.5 - Hyperlipidemia, unspecified, R19.01 - Right upper quadrant abdominal swelling, mass and lump, R55 - Syncope and collapse, Z86.39 - Personal history of other endocrine, nutritional and metabolic disease Complete Blood Count no Diff Today E78.5 - Hyperlipidemia, unspecified, R19.01 - Right upper quadrant abdominal swelling, mass and lump, R55 - Syncope and collapse, Z86.39 - Personal history of other endocrine, nutritional and metabolic disease IRON PROFILE Today E78.5 - Hyperlipidemia, unspecified, R19.01 - Right upper quadrant abdominal swelling, mass and lump, R55 - Syncope and collapse, Z86.39 - Personal history of other endocrine, nutritional and metabolic disease TSH reflex Free T4 Today E78.5 - Hyperlipidemia, unspecified, R19.01 - Right upper quadrant abdominal swelling, mass and lump, R55 - Syncope and collapse, Z86.39 - Personal history of other endocrine, nutritional and metabolic disease Vitamin D 1,25 dihydroxy Today E78.5 - Hyperlipidemia, unspecified, R19.01 - Right upper quadrant abdominal swelling, mass and lump, R55 - Syncope and collapse, Z86.39 - Personal history of other endocrine, nutritional and metabolic disease Vitamin B12 and Folate Today E78.5 - Hyperlipidemia, unspecified, R19.01 - Right upper quadrant abdominal swelling, mass and lump, R55 - Syncope and collapse, Z86.39 - Personal history of other endocrine, nutritional and metabol ic disease US abdomen complete Today E78.5 - Hyperlipidemia, unspecified, R19.01 - Right upper quadrant abdominal swelling, mass and lump, R55 - Syncope and collapse, Z86.39 - Personal history of other endocrine, nutritional and metabolic disease Lipase Today E78.5 - Hyperlipidemia, unspecified, R19.01 - Right upper quadrant abdominal swelling, mass and lump, R55 - Syncope and collapse, Z86.39 - Personal history of other endocrine, nutritional and metabolic disease Comprehensive Met. Panel Today E78.5 - Hyperlipidemia, unspecified, R19.01 - Right upper quadrant abdominal swelling, mass and lump, R55 - Syncope and collapse, Z86.39 - Personal history of other endocrine, nutritional and metabolic disease AMB Hemoglobin A1c Today E78.5 - Hyperlipidemia, unspecified, R19.01 - Right upper quadrant abdominal swelling, mass and lump, R55 - Syncope and collapse, Z13.9 - Encounter for screening, unspecified, Z86.39 - Personal history of other endocrine, nutritional and metabolic disease Lipid Panel Today E78.5 - Hyperlipidemia, unspecified Patient Instructions: RTO IN 2 WEEKS TO DISCUSS FINDINGS ON US AND DISCUSS LAB RESULTS, SOONER PRN Coding Level of Care Code Est Pt Level 4 (19615) Est Pt Prev Care 18-39y(77073) Diagnoses Encounter for general adult medical examination with abnormal findings Z00.01 Syncope and collapse R55 Dyslipidemia E78.5 Hx of Lois thyroiditis Z86.39 RUQ abdominal mass R19.01 Hypermobile joint syndrome of multiple sites M24.80 Pain in joint involving multiple sites M25.50 Moderate major depression F32.1 Additional Codes MIKAYLA-7 Assessment Billing - MIKAYLA-7 Assessment Tool: MIKAYLA-7 Assessment 70405 ([id number]) Vital Signs *Quality* - Advance Care Planning discussion: Exists, not on file ([id number]) Vital Signs *Quality* - Time spent: 1-15 minutes, not on file ([id number])
[2023-08-17 09:00] VITALS: BP 111/73; PULSE 77; RESP 11; TEMP 36.9; O2SAT 98; BMI 49.8
== END 2023-08-17 09:51 | disposition home or self-care (01) ==
PROVIDERS: PCP Nurse Practitioner Family; Visit Provider Nurse Practitioner Family
DX: Z00.01 Encounter for general adult medical examination with abnormal findings (principal); R55 Syncope and collapse; E78.5 Hyperlipidemia, unspecified; F32.1 Major depressive disorder, single episode, moderate; Z86.39 Personal history of other endocrine, nutritional and metabolic disease; R19.01 Right upper quadrant abdominal swelling, mass and lump; M24.80 Other specific joint derangements of unspecified joint, not elsewhere classified; M25.50 Pain in unspecified joint
CPT/HCPCS: 1124F; 99214; 99395

== ENCOUNTER 2023-08-17 09:42 | Outpatient (REF) | payer OTHER, SELFPAY ==
[2023-08-17 12:05] LABS: Hematocrit 41.7 % (37.0-47.0); Hemoglobin 13.3 g/dl (12.0-16.0); Mean Corpuscular HGB Conc 31.9 g/dl (31.0-35.0); Mean Corpuscular Hemoglobin 25.7 pg (27.0-33.0); Mean Corpuscular Volume 80.5 fL (80.0-98.0); Mean Platelet Volume 9.2 fL (9.4-12.3); Platelet Count 253 X10*3/uL (160-400); Red Blood Count 5.18 X10*6/uL (4.20-5.50); White Blood Count 7.5 X10*3/uL (4.8-10.8)
[2023-08-17 12:41] LABS: Alanine Aminotransferase 19 U/L (0-31); Albumin Level 4.2 g/dL (3.5-5.0); Alkaline Phosphatase 104 U/L (39-117); Amylase 42 U/L (28-100); Anion Gap 10 (12-20); Aspartate Amino Transferase 14 U/L (5-31); Bilirubin Total 0.6 mg/dL (0.0-1.0); Blood Urea Nitrogen 16 mg/dL (9-16); Calcium 9.6 mg/dL (8.4-10.2); Carbon Dioxide 27 mmol/L (22-29); Chloride 108 mmol/L (96-108); Cholesterol 238 mg/dL (<200); Estimated Glomerular Filt Rate > 60; Glucose Random 107 mg/dL (60-115); HDL Cholesterol 38 mg/dL (>40); Iron 49 mcg/dL (30-160); LDL Cholesterol Calculated 172 mg/dL (<100); Lipase 14 U/L (8-78); Percent Iron Saturation 17 % (15-50); Potassium 4.1 mmol/L (3.3-5.1); Sodium 141 mmol/L (135-145); Total Iron Binding Capacity 290 mcg/dL (228-428); Triglycerides 142 mg/dL (<150); Unsaturated Iron Binding 241 ug/dL
[2023-08-17 12:59] LABS: TSH reflex Free T4 4.85 uIU/mL (0.32-4.0)
[2023-08-17 14:49] LABS: Free T4 (Free Thyroxine) 0.85 ng/dL (0.71-1.85)
[2023-08-17 20:09] LABS: Folate 4.8 ng/mL (> or = 4.0)
[2023-08-19 00:46] LABS: Vitamin B12 405 pg/mL (200-900)
[2023-08-21 17:13] LABS: VITAMIN D (1,25 OH) D3 34 pg/mL; Vit D (1,25-Dihydroxy) Total 34 pg/mL (18-72); Vitamin D (1,25 OH) D2 <8 pg/mL
== END 2023-08-17 09:43 | disposition home or self-care (01) ==
LOC: HO.WFDLDS 09:42
PROVIDERS: Visit Provider Nurse Practitioner Family
DX: R19.01 Right upper quadrant abdominal swelling, mass and lump (principal); R55 Syncope and collapse; E78.5 Hyperlipidemia, unspecified; Z86.39 Personal history of other endocrine, nutritional and metabolic disease
CPT/HCPCS: 36415; 80053; 80061; 82150; 82607; 82652; 82746; 83540; 83690; 84439; 84443; 85027

== ENCOUNTER 2023-09-04 08:15 | Outpatient (REF) | payer OTHER, SELFPAY ==
--- NOTE | ~2023-09-04 | US_ITS ---
EXAMINATION: US ABDOMEN COMPLETE CLINICAL INFORMATION: Right upper quadrant pain, swelling, mass and lump. COMPARISON: None available. TECHNIQUE: Real-time imaging of the abdominal viscera. Study limited due to patient body habitus. FINDINGS: PANCREAS: Visualized pancreas is unremarkable. ABDOMINAL AORTA: The proximal, mid, and distal segments are normal in caliber. INFERIOR VENA CAVA: Visualized portions are normal. LIVER: Diffuse increased echogenicity to the liver parenchyma. No focal hepatic lesion. There is no intrahepatic biliary duct dilatation seen. GALLBLADDER: Normal. The gallbladder is physiologically distended without evidence of stones, sludge, polyps, wall thickening or pericholecystic fluid. COMMON BILE DUCT: Normal in caliber measuring 0.3 cm in diameter. RIGHT KIDNEY: Normal. No hydronephrosis. No renal calculi or focal parenchymal lesions. The kidney measures 10.9 cm in maximum dimension. LEFT KIDNEY: Normal. No hydronephrosis. No renal calculi or focal parenchymal lesions. The kidney measures 12.2 cm in maximum dimension. SPLEEN: Normal. The spleen measures 14 cm in maximum dimension. FREE FLUID/RUQ: No free fluid. No masses seen in the right upper quadrant. US/US abdomen complete IMPRESSION: Hepatic steatosis. Mildly enlarged spleen.
== END 2023-09-04 08:16 | disposition home or self-care (01) ==
LOC: HO.US 08:15
PROVIDERS: PCP Nurse Practitioner Family; Visit Provider Nurse Practitioner Family
DX: R19.01 Right upper quadrant abdominal swelling, mass and lump (principal); R55 Syncope and collapse; E78.5 Hyperlipidemia, unspecified; Z86.39 Personal history of other endocrine, nutritional and metabolic disease
CPT/HCPCS: 76700

== ENCOUNTER 2023-09-19 11:36 | Outpatient (AMB) | payer OTHER, SELFPAY ==
--- NOTE | 2023-09-19 11:39 | A.OFFPC_ITS ---
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 Maintenance Required: No Accompanied by: Self / Same As Patient Allergies amoxicillin Allergy (Severe, Verified 09/19/23 11:47) Hives Penicillins Allergy (Severe, Verified 09/19/23 11:47) hives, rash Medication List - Last Reconciled 09/19/23 by Raine Feldman, FLOWER [facility]-BC dextroamphetamine-amphetamine 15 mg ER (Adderall XR) 1 cap PO QAM fluoxetine 20 mg PO DAILY ibuprofen 800 mg PO TID PRN levonorgestrel (Liletta) intrauterine Tobacco use date assessed: 08/17/23 Dental Screening Dental Screen Date: 08/17/23 HPI HPI Comments History of Present Illness Details 23-year-old female with MDD, ADD, dyslip idemia, obesity suppurative hidradenitis, sciatica, TITUS positive, PCOS, generalized anxiety disorder, PTSD, recurrent syncope idiopathic intracranial hypertension, hepatic steatosis, subclinical hypothyroid Specialists Neurology Rheumatology [facility] Counselor Con[employer] Paving Supervisor Endocrinology Genetics Ophthalmology Health maintenance pap Labs from 07/05/2023 show a normal CBC, elevated ESR at 23, normal CMP, elevated C-reactive protein 2.43, TSH 4.07, normal T4 0.92 positive TITUS and TPO antibodies Lipid profile 01/15/2023 show elevated total cholesterol 262, LDL 198, HDL 39 Here today to fu on chronic conditions: Labs from 08/17/2023 showing normal CBC, normal CMP, normal iron studies, elevated total cholesterol 238, LDL 172, HDL 38, normal amylase and lipase, TSH 4.85, normal T4 0.85, B12 & Folate WNL, Vit D WNL 08/2023 abd US: Hepatic steatosis. Mildly enlarged spleen. Declines GI referral at this time. However she does continue to complain of pain in this right upper quadrant area and she is still able to feel a firm mass. She is interested in pursuing additional imaging.. CT of the abdomen with and without IV contrast will be ordered. 09/14/23 Eye exam, intracranial htn bilat , annual eye exam EDS labs negative no further out follow up indicated. EDS diagnosis removed from her chart. Has not had tilt table done yet - issue w/ receiving order. She will follow up with the java front end web developer on this has been drinking more gatorade and wearing tighter pants with + effect; did not start Na tabs at this time. She should continue this. Thyroid - was on meds during childhood, labs labile, so stopped. IS trying to get into [facility] - states they are not receiving the referral from our office. Will have front office staff work on this. She does not wish to start any medications no consulting with endocrinology. [facility] Medical History Chronic fatigue and malaise Thyroid antibody positive Hx of Lois thyroiditis Hypermobile joint syndrome of multiple sites Pain in joint involving multiple sites Surgical History History of wisdom tooth extraction Family History Father Liver cirrhosis Diabetes Lois's disease Polyp of stomach Obesity Mother Hypothyroidism Mental health disorder PCOS (polycystic ovarian syndrome) Social History Household Members: Family Housing: House Are you a primary director of home care hospice to a significant other at home: No Do you presently have visiting nurse or other home services: No 75 years or older and lives alone: No Alcohol intake: current Alcohol intake frequency: a few times a month Alcohol type: other Patient Tobacco Use Status: Never used Tobacco e-Cigarette/Vaping Use: Never Used Second Hand Smoke Exposure: No Substance Use Type: Marijuana service: No Current occupational status: unemployed Current occupation: Laid off from [email or web address] Current occupational exposures/hazards: No Cognitive needs: No Hearing needs: No Vision needs: Yes (wears glasses) Questionnaire Thrive Questionnaire Date Thrive assessed: 01/08/23 MIKAYLA-7 AMB Questionnaire MIKAYLA-7 Date MIKAYLA - 7 assessed: 08/17/23 Source: Developed by Drs. Tapan Guzman, Amina Sood, Jorden Morgan and colleagues, with an educational santos from [employer]. Review of Systems Const All systems reviewed & are unremarkable except as noted in HPI and below Physical exam (Primary Care) Vital Signs: Last Vital Signs Temp 97.7 F 09/19/23 11:40 Pulse 99 09/19/23 11:40 Resp 14 09/19/23 11:40 BP 116/70 09/19/23 11:40 Pulse Ox 95 09/19/23 11:40 Oxygen Delivery Method Room Air 09/19/23 11:40 BMI result Body Mass Index 49.7 BMI Assessment/Plan discussion: High BMI High, discussed plan: lifestyle Tobacco/Smoking Status: Tobacco use Status Tobacco use date assessed 08/17/23 09/19/23 11:49 Patient Tobacco Use Status Never used Tobacco 09/19/23 11:49 e-Cigarette/Vaping Use Never Used 09/19/23 11:49 Thrive Assessment: Date of Thrive Assessment Date Thrive assessed 01/08/23 09/19/23 11:49 Const Other: General: Well developed, well nourished, in no acute distress. Appears stated age. Neck: Supple, no adenopathy or thyromegaly. Lungs: Clear to auscultation bilaterally. No rales, rhonchi or wheeze noted. Good air flow in all keyes. Heart: Regular rate and rhythm. No murmurs, click, rubs or gallops are noted. Abdomen: Bowel sounds present in all quadrants. DURING PALPATION OF RUQ, PT C/O PAIN. THIS IS IN AN AREA WHERE I CAN PALPATE A FIRM, NONMOBILE MASS, BELOW THE RIB CAGE. THERE IS SOME CREPITUS WITH PALPATION. NO REBOUND TENDERNESS. NO EPIGASTRIC TENDERNESS. NO HERNIA. Musculoskeletal: Joints are TENDER AND HYPERMOBILE, without swelling, redness, or effusions. Range of motion is observed to be HYPERMOBILE. Assessment and Plan Assessment & Plan (1) Dyslipidemia: Comment: Trending of her lipid profile over the last 3 years so worsening of her lipid profile. Her LDL is 172. The plan will be to start her on atorvastatin 20 mg p.o. at bedtime. Repeat labs in 3 months. Lifestyle modification should also be encouraged. Code(s): E78.5 - Hyperlipidemia, unspecified (2) Hx of Lois thyroiditis: Comment: TSH slightly above 4. She wishes to follow up with endocrinology for any further management. Having a hard time getting back in to [facility] endocrinology. I have asked her to work with the front office staff on this. Code(s): Z86.39 - Personal history of other endocrine, nutritional and metabolic disease (3) Hepatic steatosis: Comment: US 08/2023 Hepatic steatosis. Mildly enlarged spleen. LFTs within normal limits Declines GI referral Code(s): K76.0 - Fatty (change of) liver, not elsewhere classified (4) RUQ abdominal mass: Comment: Ultrasound did not reveal any mass. However this is palpable. The area is painful. Therefore a CT of the abdomen with and without contrast will be ordered. I will follow up with the patient once these results are available. Code(s): R19.01 - Right upper quadrant abdominal swelling, mass and lump (5) Splenomegaly: Comment: Noted on ultrasound. Code(s): R16.1 - Splenomegaly, not elsewhere classified (6) Syncope and collapse: Comment: ongoing for years, worse since onset. Echo UTD. Tilt-table ordered and pending. Continue to drink at least 3L of liquids, preferably fluid with Na+ like gatorade and wear tight compression leggings; slow position changes. This seems to be helping. Code(s): R55 - Syncope and collapse Plan This note is constructed using voice recognition software. While every effort has been made to ensure accuracy in public opinion survey taker, still errors may have been included Sometimes, these errors may affect the content or meaning of the given sentence . Total time spent caring for the patient today was 60 minutes. This includes time spent before the visit reviewing the chart, time spent during the visit, and time spent after the visit on documentation Orders: Orders TSH reflex Free T4 12/17/23 E78.5 - Hyperlipidemia, unspecified, K76.0 - Fatty (change of) liver, not elsewhere classified, Z86.39 - Personal history of other endocrine, nutritional and metabolic disease CT abdomen wo/w IV con Today K76.0 - Fatty (change of) liver, not elsewhere classified, R16.1 - Splenomegaly, not elsewhere classified, R19.01 - Right upper quadrant abdominal swelling, mass and lump Lipid Panel 12/17/23 E78.5 - Hyperlipidemia, unspecified, K76.0 - Fatty (change of) liver, not elsewhere classified, Z86.39 - Personal history of other endocrine, nutritional and metabolic disease Comprehensive [place]. Panel Fast 12/17/23 E78.5 - Hyperlipidemia, unspecified, K76.0 - Fatty (change of) liver, not elsewhere classified, Z86.39 - Personal history of other endocrine, nutritional and metabolic disease Medications: New atorvastatin 20 mg PO BEDTIME 90 tabs 0RF ibuprofen 800 mg PO TID PRN 90 tabs 1RF pain Patient Instructions: Return to the office in 2 months to discuss the results of the CT scan and the tilt-table testing results. These results are back sooner than 2 months please schedule an appointment so that we may discuss these. He will also need a repeat visit in 3 months' time with repeat labs that are fasting to follow up on your hyperlipidemia. Coding Level of Care Code Est Pt Level 5 (49637) Diagnoses Dyslipidemia E78.5 Hx of Lois thyroiditis Z86.39 Hepatic steatosis K76.0 RUQ abdominal mass R19.01 Splenomegaly R16.1 Syncope and collapse R55
[2023-09-19 11:40] VITALS: BP 116/70; PULSE 99; RESP 14; TEMP 36.5; O2SAT 95; BMI 49.7
== END 2023-09-19 12:26 | disposition home or self-care (01) ==
PROVIDERS: PCP Nurse Practitioner Family; Visit Provider Nurse Practitioner Family
DX: E78.5 Hyperlipidemia, unspecified (principal); Z86.39 Personal history of other endocrine, nutritional and metabolic disease; K76.0 Fatty (change of) liver, not elsewhere classified; R19.01 Right upper quadrant abdominal swelling, mass and lump; R16.1 Splenomegaly, not elsewhere classified; R55 Syncope and collapse
CPT/HCPCS: 99215; 99417

== ENCOUNTER 2023-11-20 10:25 | Outpatient (REF) | payer OTHER, SELFPAY ==
--- NOTE | ~2023-11-20 | CT_ITS ---
EXAMINATION: CT ABDOMEN WITHOUT AND WITH CONTRAST CLINICAL INFORMATION: Fatty change of liver not elsewhere classified COMPARISON: Ultrasound abdomen 09/04/2023 TECHNIQUE: Contiguous axial thin section helical images of the abdomen were performed before and after the administration of oral contrast and 85 mL of Omnipaque 350 intravenous contrast. The data set was reformatted in the coronal and sagittal planes and reviewed on an independent workstation. This CT examination was performed using dose optimization techniques as appropriate, variously including the following: *Automated exposure control *Adjustment of mA and/or kV according to patient size (this includes techniques or standardized protocols for targeted exams where dose is matched to indication/reason for exam; i.e. extremities or head) *Use of iterative reconstruction technique DLP: 2550 mGy-cm FINDINGS: LUNG BASES: Unremarkable. LIVER, GALLBLADDER, AND BILIARY TREE: The liver is enlarged measuring approximately 23.5 cm in craniocaudal dimension. There is diffuse decrease in liver attenuation which can be seen with hepatic steatosis. No focal hepatic lesion. The gallbladder is physiologically distended without evidence of radiopaque stones, wall thickening or pericholecystic inflammatory changes. PANCREAS: Unremarkable SPLEEN: Spleen is enlarged measuring approximately 15 cm in craniocaudal dimension. No focal lesion. ADRENAL GLANDS AND KIDNEYS: Bilateral adrenal glands are unremarkable. Symmetric nephrograms. No renal calculus or hydronephrosis. BOWEL LOOPS: Included bowel loops are non-dilated. LYMPH NODES: No enlarged abdominal lymph nodes. VASCULAR: The abdominal aorta is normal in caliber. BONES: No acute or suspicious osseous abnormality.Mild anterior wedging of T8 vertebral body. CT/CT abdomen wo/w IV con IMPRESSION: 1. Hepatomegaly with hepatic steatosis. No focal hepatic lesion. 2. Splenomegaly. Electronically signed by: Abdoulaye Wright MD 12/20/2023 02:39 PM EDT
[2023-11-20] MEDS: iohexoL 350 MG/ML 100 ML INFUS..BTL IV (11:20)
== END 2023-11-20 10:26 | disposition home or self-care (01) ==
LOC: HO.CT 10:25
PROVIDERS: PCP Nurse Practitioner Family; Visit Provider Nurse Practitioner Family
DX: R16.1 Splenomegaly, not elsewhere classified (principal); R19.01 Right upper quadrant abdominal swelling, mass and lump; K76.0 Fatty (change of) liver, not elsewhere classified
CPT/HCPCS: 74170; Q9967

== ENCOUNTER 2024-12-02 15:39 | Outpatient (AMB) | payer OTHER, SELFPAY ==
--- OUTSIDE RECORDS SUMMARY | 2024-12-02 16:02 | XMS_ITS | Encounter Summary ---
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 st Contact Info) Description 01/02/2022 [facility]ill [facility] [address] [id number] Leeroy Gillis MD [address] [place] [id number] Attention deficit disorder (ADD) without hyperactivity Social History Tobacco Use Types Packs/Day Years Used Date Smoking Tobacco: Never Assessed Alcohol Use Standard Drinks/Week Comments Never 0 (1 standard drink = 0.6 oz pur e alcohol) Hunger/Food Answer Date Recorded In the last 12 months, did y ou or your family ever eat less than you felt you should because there wasn't enough money for food? No 12/30/2020 Stable Housing Answer Date Recorded Are you worried that in the next 2 months you may not have stable housing? No 12/30/2020 Transportation Concerns Answer Date Rec orded In the last 12 months, have you or your family ever had to go without healthcare because you didn't have a way to get there? Yes 12/30/2020 Hazards in Home Answer Date Recorded Think about the place you li ve. Do you have problems with any of the following? Pests (mice or roaches), mold, no/not working smoke detectors, water leaks, no window guards. Yes 2020 Financing Utilities Answer Date Recorde d In the last 12 months, has t he electric, gas, oil, or water company threatened to shut off your services in your home? No 12/30/2020 Safety at Home Answer Date Recorded Are you or your family worried about feeling saf e in your home? No 12/30/2020 Outside Support Answer Date Recorded Do you feel that you need mo re support from other people or programs to help you care for yourself or your family? No 12/30/2020 Understanding Health Concerns Answer Da te Recorded Do you need help understandi ng your or your child's healthcare needs (diagnosis, medications, plan, etc.)? No 12/30/2020 Financing Health Concerns Answer Date R ecorded In the last 12 months, was t here a time when your child needed to see a doctor or get medications or supplies but could not because of cost? No 12/30/2020 Missing School or Work Answer Date Billy rded Did you or your child miss s chool or work because of a health problem that could have been avoided? No 12/30/2020 Comments No Sex and Gender Information Value Date Recorded Sex Assigned at Not on file Legal Sex Female 1:46 PM EDT Gender Identity Not on file Sexual Orientation Not on file documented as of this encounter Miscellaneous Notes * Telephone Encounter - Anderson Kuo DO - 01/03/2022 8:32 AM EDT ADHD prescription reviewed and eprescribed to pharmacy * Telephone Encounter - Anderson Kuo DO - 01/03/2022 8:32 AM EDT ADHD prescription reviewed and eprescribed to pharmacy * Telephone Encounter - Moni Shaw - 01/03/2022 7:59 AM EDT Request for Adderall XR 15 mg [facility] 05/03/21 Last rf 11/28/21 documented in this encounter Plan of Treatment Not on file documented as of this encounter Visit Diagnoses Diagnosis Attention deficit disorder (ADD) without hyperactivity documented in this encounter Care Teams Crotch Piece Baster Relationship Specialty Start Date End Date Leeroy Gillis MD [address] [place] [id number] PCP - General Pediatrics 11/22/20 06/08/24 documented as of this encounter
--- NOTE | 2024-12-02 16:28 | MHC.PC.OV ---
Intake Visit Reasons: Discuss about Referral Request Allergies amoxicillin Allergy (Severe, Verified 12/02/24 16:39) Hives Penicillins Allergy (Severe, Verified 12/02/24 16:39) hives, rash Medication List - Last Reconciled 12/02/24 by Raine Feldman, BELL STAFF- atorvastatin 20 mg PO BEDTIME dextroamphetamine-amphetamine 15 mg ER (Adderall XR) 1 cap PO QAM fluoxetine 20 mg PO DAILY ibuprofen 800 mg PO TID PRN levonorgestrel (Liletta) intrauterine Tobacco use date assessed: 08/17/23 Dental Screening Dental Screen Date: 08/17/23 HPI HPI Comments History of Present Illness Details 24-year-old female with MDD, ADD, dyslipidemia, obesity suppurative hidradenitis, sciatica, TITUS positive, PCOS, generalized anxiety disorder, PTSD, recurrent syncope idiopathic intracranial hypertension, hepatic steatosis, subclinical hypothyroid Specialists Neurology Rheumatology [place] [facility] Counselor Grooming Salon Manager Endocrinology Genetics Ophthalmology Health maintenance pap Telehealth fu fu on chronic conditions: Did not get appts w/ Endo - notes reviewed, [facility] closed to referrals last year. Willing to see now. Having sx of hypothyroid. Thyroid - was on meds during childhood, labs labile, so stopped. Neuro - needs new referral d/t intracranial HTN. Active w/ optho. [facility] closed to referrals, will send to [facility] Syncope and collapse - cont more freq; Tilt table ordered last year. cont to have issues w/ scheduling, im not sure why after chart review. Previously she was advised to drink more gatorade and wear tighter pants; start Na tabs Plan: [facility] Endo referral [facility] Neuro referral New order tilt table If any barriers, let me know via portal Labs are due and advised to get done before 12/16/24 when order expires. I will fu once results are available RTO 03/01/2025 as scheduled Telehealth Attestation Documentation reflects accurately the conversation and assessments conducted during the telemedicine visit. The patient has been explained that this is an interactive (audio/video) telehealth encounter and what that consists of. The patient understands and wishes to proceed. [employer] platform was used. Total time spent caring for the patient today was 31 minutes. This includes time spent before the visit reviewing the chart, time spent during the visit, and time spent after the visit on documentation, reviewing laboratory results, diagnostic imaging, medications, performing a medically necessary evaluation, counseling on diagnoses, care coordination, ordering appropriate tests, ordering appropriate medications, review of tests performed by other providers, reporting test results with the patient, communication with other healthcare providers. 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 Pain in joint involving multiple sites Surgical History History of wisdom tooth extraction Family History Father Liver cirrhosis Diabetes Lois's disease Polyp of stomach Obesity Mother Hypothyroidism Mental health disorder PCOS (polycystic ovarian syndrome) Social History Household Members: Family Housing: House Are you a primary emergency care tech to a significant other at home: No Do you presently have visiting nurse or other home services: No 75 years or older and lives alone: No Alcohol intake: current Alcohol intake frequency: a few times a month Alcohol type: other Patient Tobacco Use Status: Never used Tobacco e-Cigarette/Vaping Use: Never Used Second Hand Smoke Exposure: No Substance Use Type: Marijuana service: No Current occupational status: unemployed Current occupation: Laid off from [employer] Current occupational exposures/hazards: No Cognitive needs: No Hearing needs: No Vision needs: Yes (wears glasses) Questionnaire PHQ-9 Over the last 2 weeks, how often have you been bothered by any of the following problems? 1. Little interest or pleasure in doing things: not at all 2. Feeling down, depressed, or hopeless: not at all 3. Trouble falling or staying asleep, or sleeping too much: not at all 4. Feeling tired or having little energy: not at all 5. Poor appetite or overeating: not at all 6. Feeling bad about yourself - or that you are a failure or have let yourself or your family down: not at all 7. Trouble concentrating on things, such as reading the newspaper or watching television: not at all 8. Moving or speaking so slowly that other people could have noticed. Or the opposite - being so fidgety or restless that you have been moving around a lot more than usual: not at all 9. Thoughts that you would be better off or of hurting yourself in some way: not at all Total score: 0 Depression Screening Interpretation: Negative Depression Screening Done: Yes 11577 - PHQ-9 Billing: Yes Source: Developed by Drs. Tapan Guzman, Amina Sood, Jorden Morgan and colleagues, with an educational santos from [employer]. Thrive Questionnaire Date Thrive assessed: 12/02/24 I am a: Patient What is your living situation today?: I have a steady place to live Within the past 12 months, did the food you bought not last and you didn't have the money to get more?: Never true Within the past 12 months, did you worry whether your food would run out before you got money to buy more?: Never true Do you have trouble paying for medicines?: No Do you have trouble getting transportation to medical appointments?: No Do you have trouble paying your heating and electricity bill?: No Do you have trouble taking care of your child, family member or friend?: No Do you have trouble with day-to-day activities such as bathing, preparing meals, shopping, managing finances, etc.?: No Are you currently unemployed and looking for a job?: No Are you interested in more education?: No Please select the resources that you would like help with: None Currently or been in a relationship where the following occur: No concerns reported THRIVE Score: 0 AUDIT C Alcohol Use Questionnaire (AUDIT-C) 1. How often do you have a drink containing alcohol?: Never 3. How often do you have six or more drinks on one occasion?: Never Total Score: 0 Score Reviewed/Action Taken: Yes MIKAYLA-7 AMB Questionnaire MIKAYLA-7 Date MIKAYLA - 7 assessed: 12/02/24 Feeling nervous, anxious, or on edge: 0 = Not at all Not being able to stop or control worryin = Not at all Worrying too much about different things: 0 = Not at all Trouble relaxin = Not at all Being so restless that it is hard to sit still: 0 = Not at all Becoming easily annoyed or irritable: 0 = Not at all Feeling afraid as if something awful might happen: 0 = Not at all Total MIKAYLA-7 score (0-4 normal; 5-9 mild; 10-14 moderate; 15-21 severe): 0 Source: Developed by Drs. Tapan Guzman, Amina Sood, Jorden Morgan and colleagues, with an educational santos from [employer]. MIKAYLA-7 Assessment Billing MIKAYLA-7 Assessment Tool: MIKAYLA-7 Assessment 35828 Physical exam (Primary Care) Tobacco/Smoking Status: Tobacco use Status Tobacco use date assessed 08/17/23 09/19/23 11:49 Patient Tobacco Use Status Never used Tobacco 09/19/23 11:49 e-Cigarette/Vaping Use Never Used 09/19/23 11:49 Depression Screening Interpretation: Negative Thrive Assessment: Date of Thrive Assessment Date Thrive assessed 01/08/23 09/19/23 11:49 Currently or been in a relationship where the following occur: No concerns reported Telehealth Telehealth Telehealth Platform: [facility] Location of provider rendering services: practice address Location of patient: address on file Patient Identification confirmed using: Name, : Yes Telehealth method: voice only Patient verbally consented to treatment: Yes Patient verbally consented to billing insurance company: Yes Patient informed of any privacy concerns related to visit: Yes Minutes spent on Phone/Video with Pt.: 12 Results Reviewed Results Reviewed: Labs from 08/17/2023 showing normal CBC, normal CMP, normal iron studies, elevated total cholesterol 238, LDL 172, HDL 38, normal amylase and lipase, TSH 4.85, normal T4 0.85, B12 & Folate WNL, Vit D WNL Labs from 07/05/2023 show a normal CBC, elevated ESR at 23, normal CMP, elevated C-reactive protein 2.43, TSH 4.07, normal T4 0.92 positive TITUS and TPO antibodies Lipid profile 01/15/2023 show elevated total cholesterol 262, LDL 198, HDL 39 Coding Level of Care Code Tele Est Pt Level 4 (07688) Complex EM visit Add On G2211 Diagnoses Elevated TSH R79.89 Hx of Lois thyroiditis Z86.39 Thyroid antibody positive R76.8 Chronic fatigue and malaise R53.82; R53.81 Intracranial hypertension G93.2 Syncope and collapse R55 Dyslipidemia E78.5 Additional Codes MIKAYLA-7 Assessment Billing - MIKAYLA-7 Assessment Tool: MIKAYLA-7 Assessment 02598 ([id number]) PHQ-9 - 57621 - PHQ-9 Billing: Yes ([id number]) Assessment & Plan Assessment & Plan (1) Elevated TSH: Code(s): R79.89 - Other specified abnormal findings of blood chemistry Category: Medical (2) Hx of Lois thyroiditis: Comment: TSH slightly above 4. She wishes to follow up with endocrinology for any further management. Code(s): Z86.39 - Personal history of other endocrine, nutritional and metabolic disease Category: Medical (3) Thyroid antibody positive: Code(s): R76.8 - Other specified abnormal immunological findings in serum Category: Medical (4) Chronic fatigue and malaise: Code(s): R53.82 - Chronic fatigue, unspecified; R53.81 - Other malaise Category: Medical (5) Intracranial hypertension: Code(s): G93.2 - Benign intracranial hypertension Category: Medical (6) Syncope and collapse: Comment: ongoing for years, worse since onset. Echo UTD. Tilt-table ordered and pending. Continue to drink at least 3L of liquids, preferably fluid with Na+ like gatorade and wear tight compression leggings; slow position changes. This seems to be helping. Code(s): R55 - Syncope and collapse Category: Medical (7) Dyslipidemia: Comment: Trending of her lipid profile over the last 3 years so worsening of her lipid profile. Her LDL is 172. on atorvastatin 20 mg p.o. at bedtime. Repeat labs in 3 months. Lifestyle modification should also be encouraged. Code(s): E78.5 - Hyperlipidemia, unspecified Category: Medical Plan . Orders: Orders ECG Tilt Table Test Today R55 - Syncope and collapse Referrals Endocrinology Referral R53.81 - Other malaise, R53.82 - Chronic fatigue, unspecified, R76.8 - Other specified abnormal immunological findings in serum, R79.89 - Other specified abnormal findings of blood chemistry, Z86.39 - Personal history of other endocrine, nutritional and metabolic disease Neurology Referral G93.2 - Benign intracranial hypertension
== END 2024-12-02 16:48 | disposition home or self-care (01) ==
LOC: HO.HMCFM 15:39
PROVIDERS: PCP Nurse Practitioner Family; Visit Provider Nurse Practitioner Family
DX: R79.89 Other specified abnormal findings of blood chemistry (principal); Z86.39 Personal history of other endocrine, nutritional and metabolic disease; R76.8 Other specified abnormal immunological findings in serum; R53.82 Chronic fatigue, unspecified; R53.81 Other malaise; G93.2 Benign intracranial hypertension; R55 Syncope and collapse; E78.5 Hyperlipidemia, unspecified

== ENCOUNTER → 2024-12-02 15:39 | Outpatient (BNVA) | payer OTHER, SELFPAY | PROVIDERS: PCP Nurse Practitioner Family; Visit Provider Nurse Practitioner Family | DX: L73.2 Hidradenitis suppurativa (principal); E78.5 Hyperlipidemia, unspecified; F98.8 Other specified behavioral and emotional disorders with onset usually occurring in childhood and adolescence; M54.30 Sciatica, unspecified side; F41.1 Generalized anxiety disorder; F43.10 Post-traumatic stress disorder, unspecified; G93.2 Benign intracranial hypertension; E03.8 Other specified hypothyroidism; R79.89 Other specified abnormal findings of blood chemistry; R76.8 Other specified abnormal immunological findings in serum; R53.81 Other malaise; R55 Syncope and collapse; R53.82 Chronic fatigue, unspecified; Z86.39 Personal history of other endocrine, nutritional and metabolic disease | CPT/HCPCS: 96127 ==

== ENCOUNTER 2024-12-12 14:52 | Outpatient (REF) | payer OTHER, SELFPAY ==
--- OUTSIDE RECORDS SUMMARY | 2024-12-12 14:55 | XMS_ITS | Clinical Summary ---
Author Organization [facility] sp[facility] Address [address] [place] [address] Phone Care Team Providers Care Developer Trading Systems Name Role Phone Leeroy Gillis MD Primary Care Provider [phone] Leeroy Gillis MD Unavailable Leeroy Gillis MD Unavailable [phone] Medications acetaZOLAMIDE (Diamox) 250 mg tablet Dose: 750 mg, Dose Amount: 3 tab, PO, BID, Special Instructions: 750mg PO BID, Dispense Quantity: 540 tab, Refills: 3, Entered: 07/30/19 16:45:00 EDT, [facility]/pharmacy #[id number] 07/30/2019 Active ondansetron (Zofran) 4 mg tablet Dose: 4 mg, Dose Amount: 1 tab, PO, Q8hr, PRN Nausea/Vomiti ng, Refills: 3, Entered: 04/05/18 8:47:06 EST 04/05/2018 Active SUMAtriptan (Imitrex) 20 mg/actuation nasal spray Dose: 20 mg, Nasal, 1time, Dispense Quantity: 12 EA, Refills: 1, Entered: 04/05/18 9:41:58 EST 04/05/2018 Active Encounters Date Type Department Care Team Description 09/24/2024 Telephone [facility] [address] [place] [address] Denis Waller MD referral from Last 3 Months Social History Tobacco Use Types Packs/Day Years Used Date Smoking Tobacco: Never Assessed Comments Unknown Sex and Gender Information Value Date Recorded Sex Assigned at Female 08/08/2023 1:51 AM EDT Legal Sex Female 1:51 AM EDT Gender Identity Not on file Sexual Orientation Not on file Last Filed Vital Signs Vital Sign Reading Time Taken Comments Blood Pressure - - Pulse - - Temperature - - Respiratory Rate - - Oxygen Saturation - - Inhaled Oxygen Concentration - - Weight 151 kg (331 lb 12.7 oz) 11/21/2018 1:18 P M EDT Height 175.2 cm (5' 8.98 ) 11/21/2018 1:18 PM ED T Body Mass Index 49.03 11/21/2018 1:18 PM EDT Plan of Treatment Not on file Care Teams Developer Trading Systems Relationship Specialty Start Date End Date Leeroy Gillis MD PCP - General 11/21/18 Leeroy Gillis MD PCP - Insurance PCP 06/06/21 Leeroy Gillis MD PCP - Clinical PCP 11/21/18
--- OUTSIDE RECORDS SUMMARY | 2024-12-12 14:55 | XMS_ITS | Encounter Summary ---
Author Organization [facility] Address [address] [place] [id number] Phone Care Team Providers Care Tile Presser Name Role Phone Leeroy Gillis MD Primary Care Provider [phone] Reason for Visit * Reason Onset Date Comments Med Refill 01/02/2022 Encounter Details Date Type Department Care Team ([facility] st Contact Info) Description 01/02/2022 [facility]ill [facility] [address] [address] Leeroy Gillis MD [address] [place] [id number] Attention deficit disorder (ADD) without hyperactivity Social [...] hyperactivity documented in this encounter Care Teams Tile Presser Relationship Specialty Start Date End Date Leeroy Gillis MD [address] [facility] [place] [address] PCP - General Pediatrics 11/22/20 06/08/24 documented as of this encounter
[2024-12-12 18:10] LABS: Alanine Aminotransferase 23 U/L (0-31); Albumin Level 4.1 g/dL (3.5-5.0); Alkaline Phosphatase 105 U/L (39-117); Anion Gap 13 (12-20); Aspartate Amino Transferase 21 U/L (5-31); Blood Urea Nitrogen 15 mg/dL (9-16); Calcium 9.1 mg/dL (8.4-10.2); Carbon Dioxide 25 mmol/L (22-29); Chloride 108 mmol/L (96-108); Cholesterol 254 mg/dL (<200); Estimated Glomerular Filt Rate > 60; HDL Cholesterol 35 mg/dL (>40); Potassium 5.0 mmol/L (3.3-5.1); Sodium 141 mmol/L (135-145); Total Protein 6.4 g/dL (6.5-8.0); Triglycerides 110 mg/dL (<150)
== END 2024-12-12 14:53 | disposition home or self-care (01) ==
LOC: HO.HKASLDS 14:52
PROVIDERS: Visit Provider Nurse Practitioner Family
DX: K76.0 Fatty (change of) liver, not elsewhere classified (principal); E78.5 Hyperlipidemia, unspecified; Z86.39 Personal history of other endocrine, nutritional and metabolic disease
CPT/HCPCS: 36415; 80053; 80061; 84443

== ENCOUNTER 2025-03-24 14:43 | Outpatient (AMB) | payer OTHER, SELFPAY ==
--- NOTE | 2025-03-24 14:48 | A.OFFVIS_ITS ---
Vital Signs 03/24/25 14:53 Height 5 ft 9 in Weight 359 lb 5.655 oz BMI 53.1 BP 106/68 Blood Pressure Location Rt brachial Position Sitting Pulse 108 H Pulse Source Pulse Oximeter Oxygen Delivery Method Room Air Intake Visit Reasons: Other specified abnormal findings of blood textile chemist Intake Note: NEW Patient presents here today for Other specified abnormal findings of blood chemistry : Customer Solutions Architect Required: No Accompanied by: Self / Same As Patient Allergies amoxicillin Allergy (Severe, Verified 03/24/25 14:49) Hives Penicillins Allergy (Severe, Verified 03/24/25 14:49) hives, rash Medication List - Last Reconciled 03/24/25 by Jens Nelson MD atorvastatin 20 mg PO BEDTIME dextroamphetamine-amphetamine 15 mg ER (Adderall XR) 1 cap PO QAM etonogestrel (Nexplanon) subdermal ibuprofen 800 mg PO TID PRN HPI Comments Details: 24 yo female with PMH of Lois's thyroiditis diagnosed at age 11-12. She had treatment for about 6 months and due to fluctuation of her labs, the levothyroxine was stopped. They have monitored labs but she has not had any treatment. She last saw endocrinology at age 22. She was since, followed by her PCP. PCOS, diagnosed at age 12, with irregular periods, a cystic ovaries, and elevated testosterone levels. She also endorses hirsutism, her chest and stomach. She has been on multiple OCPs, but only Nexplanon suit her as she had side effects for most of them, Even IUD didn't work for her. She is also followed by OBGYN. She endorses family history of T2DM. She also reports having high cholesterol her entire life. She has only recently (since mid/late November 2024) started taking Atorvastatin 20mg, She has extensive family history of high cholesterol in both sides of the family. No known early atherosclerotic cardiovascular disease. ROS: Energy: low Sleep: variable sleep, anywhere from 4-12 hours. Patient is being told to snore. Weight: She reports 5-6 years stable, but she has gained up to 20 lbs in the last year, despite no changes in diet and increased in physical activity. She has been having multiple changes i her antidepressant medications which could be related to it. Hair/skin: no hair failing, no dry skin No constipation She reports intermittent dysphagia. No bolus sensation. No compressive symptoms with supine position No known thyroid cancer Both parents have hypothyroidism, father has Lois's; mother unknown. Biotin: no No radiation exposure Physical exam: General: Well appearing. NAD. Neck/Thyroid: Thyroid not palpable, no nodules. Acantosis nigricans present. Eyes: No conjunctival injection, not lid lag or proptosis. No Xantomas CV: RRR, no murmur. No edema. Resp: Lungs clear to auscultation bilaterally Abdomen: Soft, nontender. nondistended Extremities/Neuro: No weakness or tremor of outstretched hands Laboratory Tests 01/15/23 07/05/23 08/17/23 11:40 09:40 09:44 Creatinine Estimated GFR Fasting Glucose Triglycerides 125 142 Cholesterol 262 H 238 H LDL Cholesterol, Calc 198 H 172 H HDL Cholesterol 39 L 38 L 1,25 Dihydroxy Vit D3 34 TSH 4.16 H 4.07 H 4.85 H Free T4 0.92 0.85 12/12/24 14:55 Creatinine 0.80 Estimated GFR > 60 Fasting Glucose 98 Triglycerides Cholesterol 254 H LDL Cholesterol, Calc 197 H HDL Cholesterol 35 L 1,25 Dihydroxy Vit D3 TSH 2.84 Free T4 PFSH Medical History Chronic fatigue and malaise Thyroid antibody positive Hx of Lois thyroiditis Hypermobile joint syndrome of multiple sites Pain in joint involving multiple sites Surgical History History of wisdom tooth extraction Family History Father Liver cirrhosis Diabetes Lois's disease Polyp of stomach Obesity Mother Hypothyroidism Mental health disorder PCOS (polycystic ovarian syndrome) Social History Household Members: Family Housing: House Are you a primary home care rn to a significant other at home: No Do you presently have visiting nurse or other home services: No 75 years or older and lives alone: No Alcohol intake: current Alcohol intake frequency: a few times a month Alcohol type: other Patient Tobacco Use Status: Never used Tobacco e-Cigarette/Vaping Use: Never Used Second Hand Smoke Exposure: No Substance Use Type: Marijuana service: No Current occupational status: unemployed Current occupation: Laid off from [employer] Current occupational exposures/hazards: No Cognitive needs: No Hearing needs: No Vision needs: Yes (wears glasses) Physical Exam Vital Signs: Last Vital Signs Pulse 108 H 03/24/25 14:53 BP 106/68 03/24/25 14:53 Oxygen Delivery Method Room Air 03/24/25 14:53 BMI result Body Mass Index 53.1 Assessment & Plan Assessment & Plan (1) Hx of Lois thyroiditis: Code(s): Z86.39 - Personal history of other endocrine, nutritional and metabolic disease Category: Medical Plan: Patient has a history of Lois's thyroiditis diagnosed at age 11-12. She had treatment for about 6 months and due to fluctuation of her labs, the levothyroxine was stopped. They have monitored labs but she has not had any treatment. Current labs showed mildly elevated TSH, and normal free T4. She has some mixed symptoms of hypothyroidism. At this time I think it is reasonable to just monitor, but the possibility of starting small dose of levothyroxine at some point is also reasonable. Plan Recheck TSH in 3 months Advised the patient to monitor for symptoms hypothyroidism (2) Morbid obesity with BMI of 50.0-59.9, adult: Code(s): E66.01 - Morbid (severe) obesity due to excess calories; Z68.43 - Body mass index [BMI] 50.0-59.9, adult Category: Medical Plan: Patient has history of obesity from an early age, at some point consider to be started on GLP 1, but due to being on a pediatric age it was decided to postpone starting GLP. Her obesity seems to be multifactorial given that she has a strong family history of obesity, but also given her history of PCOS. Patient has a strong preference against weight loss surgery. Major depressive disorder is not an absolute contraindication for Zepbound (tirzepatide), but although it can be prescribed to patients with stable major depressive disorder, a close monitoring of psychiatric symptoms is required during treatment. I advised the patient to discuss with her psychiatrist her current depressive symptoms and expectations if Zepbound is initiated. A clinic assistant referral was advised and patient agreed to it. Plan Hold on Zepbound for now She walks at least 3x per week. She has back problems who preclude from weightlifting. Sleep medicine referral Hoop Coiling Machine Operator referral (3) Hyperlipidemia: Code(s): E78.5 - Hyperlipidemia, unspecified Category: Medical Qualifiers: Hyperlipidemia type: other hyperlipidemia Qualified Code(s): E78.49 - Other hyperlipidemia Plan: Long history of hyperlipidemia since childhood. She has only recently (since mid/late November 2024) started taking Atorvastatin 20mg, She has extensive family history of high cholesterol in both sides of the family. No history of premature atherosclerotic cardiovascular disease. Despite the family history of hyperlipidemia, this is a not seem to be a familial hypercholesterolemia as it initially presents with markedly elevated LDL cholesterol from , characterized by premature atherosclerotic cardiovascular disease, family history of early heart disease, although it is reported that it is heterogeneous and polygenic, hence this is not completely ruled out. Other genetic forms of hypercholesterolemia like familial combined hyperlipidemia, familial dysbetalipoproteinemia and familial hypertriglyceridemia and and familial chylomicronemia syndrome seem unlikely in this case at they have different features than the ones present in this patient. FIB-4 Index = (Age ? AST) / (Platelets ? ?ALT) 0.4, requires monitoring in 1 year. Plan Continue atorvastatin 20 mg daily Check fib 4 score index in 1 year Check lipid panel in 3 months prior to next visit follow-up in 3- 4 months Plan 60 minutes spent reviewing previous records, labs, imaging, education and documenting in the chart Orders: Orders Hemoglobin A1c Today E66.01 - Morbid (severe) obesity due to excess calories, E78.49 - Other hyperlipidemia, Z68.43 - Body mass index [BMI] 50.0-59.9, adult, Z86.39 - Personal history of other endocrine, nutritional and metabolic disease Complete Blood Count no Diff Today E66.01 - Morbid (severe) obesity due to excess calories, E78.49 - Other hyperlipidemia, Z68.43 - Body mass index [BMI] 50.0-59.9, adult, Z86.39 - Personal history of other endocrine, nutritional and metabolic disease Vitamin D 25-OH Total Today E66.01 - Morbid (severe) obesity due to excess calories, E78.49 - Other hyperlipidemia, Z68.43 - Body mass index [BMI] 50.0- 59.9, adult, Z86.39 - Personal history of other endocrine, nutritional and metabolic disease TSH reflex Free T4 3 Months Z86.39 - Personal history of other endocrine, nutritional and metabolic disease Lipid Panel Today E66.01 - Morbid (severe) obesity due to excess calories, E78.49 - Other hyperlipidemia, Z68.43 - Body mass index [BMI] 50.0-59.9, adult, Z86.39 - Personal history of other endocrine, nutritional and metabolic disease Liver Panel Today E66.01 - Morbid (severe) obesity due to excess calories, E78.49 - Other hyperlipidemia, Z68.43 - Body mass index [BMI] 50.0-59.9, adult, Z86.39 - Personal history of other endocrine, nutritional and metabolic disease Basic Metabolic Panel Today E66.01 - Morbid (severe) obesity due to excess calories, E78.49 - Other hyperlipidemia, Z68.43 - Body mass index [BMI] 50.0- 59.9, adult, Z86.39 - Personal history of other endocrine, nutritional and metabolic disease Referrals Sleep Medicine Referral E66.01 - Morbid (severe) obesity due to excess calories, Z68.43 - Body mass index [BMI] 50.0-59.9, adult Coding Level of Care Code Complex visit Add On G2211 Diagnoses Hx of Lois thyroiditis Z86.39 Morbid obesity with BMI of 50.0-59.9, adult E66.01; Z68.43 Other hyperlipidemia E78.49 Hyperlipidemia type: other hyperlipidemia
[2025-03-24 14:53] VITALS: BP 106/68; PULSE 108; BMI 53.1
--- OUTSIDE RECORDS SUMMARY | 2025-03-24 18:32 | XMS_ITS | Clinical Summary ---
Author Organization [facility] Address [address] [place] [phone] Phone Care Team Providers Care Superintendent Sanitation Name Role Phone Unavailable Primary Care Provider Unavailabl e Allergies Active Allergy Reactions Criticality Noted Date Comments Amoxicillin 02/06/2017 All cillins Chocolate Cough,Itching,Shortness of breath High Food 01/16/2019 fish Lactose 01/15/2018 Naproxen 06/28/2021 Penicillin G Penicillins 03/04/2017 Witch Kym 06/28/2021 Medications pregabalin 75 MG capsule 2 Active IBUPROFEN PO Take by mouth. Active guaiFENesin (MUCINEX PO) Take by mouth. Active Loratadine (CLARITIN PO) Take by mouth. Active ibuprofen 800 MG tablet Take 800 mg by mouth 3 (three) times a day. 2 Active amphetamine-dextro amphetamine XR (Adderall XR) 15 MG 24 hr capsuleIndications :Attention deficit disorder (ADD) without hyperactivity Take 1 capsule (15 mg total) by mouth every morning. 30 capsule 3 Active Active Problems Problem Noted Date Diagnosed Date Spondylolisthesis of lumbar region 08/31/2021 Overview (03/05/2022): L4-L5; seen at [facility] 09/18; plans for MRI: L5-S1 disc bulge: plans for epidurals. Seen at [facility] 03/21. COVID-19 05/01/2021 Overview (05/01/2021): 04/19; seen in ER. Assessment & Plan (05/04/2021 7:04 AM EST): Recent dx'd; has improved with symptoms. Attention deficit disorder (ADD) without hyperac tivity 10/20/2020 Overview (11/27/2021): Was on Concerta; problems with appetite suppression and headaches; then Focalin with no help 11/17. Changed to Adderall XR 10 mg. Assessment & Plan (11/28/2021 9:53 AM EDT): Overall, doing well on Adderall, but will increase dosing to 15 mg per day as seems to need a small bump in medication. Recheck for med check/[facility] in 6 mos; discussed seeing adult provider and starting to get set up with one. Assessment & Plan (05/04/2021 7:04 AM EST): Will change to Adderall and follow up over next 2-3 months; may need to increase dose over time if tolerates medication. Assessment & Plan (12/30/2020 1:46 PM EDT): Continue Focalin XR; will go up to 15 mg as not having good control at this time. Assessment & Plan (11/23/2020 2:56 PM EDT): Will plan to change to Focalin XR, need to change due to having side effects. Plan to see at [facility] in Sept as planned. Also, recommended to see psych, gave list of providers as she plans to see someone long-term. Assessment & Plan (10/20/2020 2:24 PM EDT): Will start medication; discussed side effects of headaches, poor appetite, decrease in sleep and motor tics; plan to recheck in one month for a med check; also, recommended to see therapist who she has seen in the past. Depression 11/13/2018 Assessment & Plan (12/30/2020 1:38 PM EDT): Does not feel down. Plans to see therapist. Assessment & Plan (11/13/2018 11:10 AM EDT): F/u with therapist, and to f/u here if concerns increase with needs of medication; no suicidal thoughts at this point. Right ovarian cyst 10/04/2018 Overview (02/02/2019): ER evaluation for abdominal pain found 6 cm simple right ovarian cyst 10/02/18. To f/u with OBGYN in one week. Seen in ER: +Ovarian Cyst and referred to [facility]EROGR[facility]. 02/15. Assessment & Plan (12/30/2020 1:34 PM EDT): Sees SIDEROGRAPHER, planning for possible cyst removal. Assessment & Plan (11/13/2018 10:38 AM EDT): F/u with SIDEROGRAPHER Idiopathic intracranial hypertension 05/28/2018 Overview (09/05/2019): Sees neurology and ophthalmology at [facility]. Follow up 09/15 rec repeat MRI with venous imaging; f/u in 3-4 months. Seen 12/16 had LP done with opening pressure of 25, developed post LP headaches/back pain. F/u 08/2019, on diamox Assessment & Plan (05/03/2021 4:19 PM EST): Has neuro appt coming up. No meds at this time. Assessment & Plan (12/30/2020 1:56 PM EDT): Has appt with neurology later this month. Assessment & Plan (11/17/2019 1:51 PM EDT): Follow up with neurology as planned; now off diamox and doing well. Assessment & Plan (11/13/2018 10:37 AM EDT): Needs to f/u with neurology as planned. Other headache syndrome 04/04/2018 Overview (08/07/2021): Seen in office multiple times 03/17-04/16 [address] 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 suggested repeat 6-12 mos. had suggested GI for ongoing issues with all 3 kids. Seen by [facility] and recommended lumbar punture and to increase imitrex/zofran. No showed for neuro appt 01/2020; seen by [facility] in 02/17: plans to follow up in 6 months, to have optic nerve visual keyes done. Seen at [facility] 08/19: to see ophthalmology to have visual field testing done. Assessment & Plan (11/13/2018 11:08 AM EDT): F/u with neurology; continue meds. Childhood obesity 10/25/2017 Overview (11/27/2021): Sees endocrine: chol 259 in 08/16. 10/2019: Insulin: elevated at 47.2; Glucose: 113; Chol: 282, with non-HDL of 238; referred back to endocrine. Assessment & Plan (05/04/2021 7:03 AM EST): Needs to make follow up appt with endocrine; discussed seeing a geriatric nursing assistant and declined at this time Assessment & Plan (12/30/2020 1:55 PM EDT): Work on diet and exercise and back to endocrine for wt management. Assessment & Plan (11/17/2019 1:44 PM EDT): Follow up with endocrine and work on diet and exercise. Check BMI labs PCOS (polycystic ovarian syndrome) 10/25/2017 Overview (12/18/2020): Sees endocrine and wears estrogen/progesterone patch 3 weeks/month with menses the off week Missed appointment: 12/18. Assessment & Plan (05/03/2021 4:19 PM EST): Needs to follow up with endo as planned. Assessment & Plan (12/30/2020 1:33 PM EDT): Has appt with endocrine next month. Assessment & Plan (11/17/2019 1:51 PM EDT): Follow up with endocrine. And Blanker Press Operator for control methods. Assessment & Plan (11/13/2018 10:38 AM EDT): F/u with endocrinology Thyroid function test abnormal 09/18/2017 Overview (12/18/2020): Hx of thyroid problems- saw endocrine and was fluctuating between hypo and hyper- had been on medication but it stopped. Vitamin D deficiency, was on it in the past. Endo follow up 07/16 suggested strict weight loss for obesity 10/2019: TSH: elevated at 10.67; Free T4: low at 0.97; seen by endocrine and will f/u TFTs in 4 mos and f/u with endo in one year. 11/17: TSH: 5.18 and Free T4 was 1.05. Assessment & Plan (12/30/2020 1:33 PM EDT): Plans to see endocrine in one month. Assessment & Plan (11/23/2020 2:56 PM EDT): Plans to see endocrine; will get labs prior; already ordered Assessment & Plan (10/20/2020 2:25 PM EDT): Has not seen endocrine since last year; will recheck labs, but will need to make a follow up appt with them soon; she agreed Assessment & Plan (11/17/2019 1:44 PM EDT): Recheck labs Assessment & Plan (11/13/2018 10:38 AM EDT): F/u with endocrinology Immunizations Immunization Administration Dates Next Due DTaP 06/15/2006, 3,2001, 002,2001 HPV Vaccine 9 Valent 04/12/2016,03/30/2015 Hep A, ped/adol 07/01/2010,06/11/2009 Hep B, ped/adol 03/18/2002,2001,2001 IPV 06/15/2006, 3,2001, 002 MMR 09/01/2002 MMRV 06/09/2002 Meningococcal Conj (Menactra) MCV4P 09/26/2017,0 06/25/2012 Pneumococcal Conjugate 13-Valent 007,2001,2001, 002 Tdap 06/25/2012 Varicella 06/13/2007 Family History Medical History Relation Name Comments Diabetes Father Hyperlipidemia Father Heart attack Maternal Grandfather No Known Problems Maternal Grandmother Dysphagia Mother Fainting Mother Vasovagal Fibromyalgia Mother Irritable bowel syndrome Mother Alzheimer's disease Paternal Grandfather Diabetes Paternal Grandfather Alzheimer's disease Paternal Grandmother Diabetes Paternal Grandmother Relation Name Status Comments Father cirrhosis. Dece ased 05/2017 Maternal Grandfather Healthy Maternal Grandmother Alive Healthy Mother Alive Vasovagal synco pe, fibromyalgia, IBS Paternal Grandfather Alzheim er's dementia Paternal Grandmother Alzheim er's dementia Social History Tobacco Use Types Packs/Day Years [...] Sign Reading Time Taken Comments Blood Pressure 124/70 11/28/2021 9:31 AM EDT Pulse 93 10/20/2020 1:33 PM EDT Temperature 36.8 C (98.2 F) 01/07/2022 10:43 AM EDT Respiratory Rate - - Oxygen Saturation 99% 10/20/2020 1:33 PM EDT Inhaled Oxygen Concentration - - Weight 157 kg (345 lb 6.4 oz) 01/07/2022 10:43 A M EDT Height 175.3 cm (5' 9 ) 11/28/2021 9:31 AM EDT Body Mass Index 51.01 11/28/2021 9:31 AM EDT Plan of Treatment Health Maintenance Due Date Last Done Comments Men B Vaccine (1 of 2 - Standard) 2017 DTaP,Tdap,and Td Vaccines (7 - Td or Tdap) 06/25/2022 06/25/2012, 06/15/2006, 12/02/2002, Additional history exists Influenza Vaccines (#1) 2024 COVID-19 Vaccine (4 - season) 2024 04/03/2022, 09/16/2020, 08/26/2020 Hepatitis B Vaccines Completed 03/18/2002, 2001, 2001 MMR Vaccines Completed 09/01/2002, 06/09/2002 IPV Vaccines Completed 06/15/2006, 08/2002, 2001, Additional history exists Pneumococcal Vaccine Aged Out 06/15/2006, 2001, 2001, Additional history exists No longer eligible based on patient's age to complete this topic Varicella Vaccines Completed 06/13/2007, 06/09/2002 Hepatitis A Vaccines Completed 07/01/2010, 06/11/19 HPV Vaccines Completed 04/12/2016, 03/30/2015 Meningococcal Vaccine Completed 09/26/2017, 013 HIB Vaccines Aged Out No longer eligi ble based on patient's age to complete this topic Procedures * Due to [place] [employer] law, this organization might not be sharing sensitive test results. Procedure Name Priority Date/Time Associated Diagnosis Comments CHLAMYDIA AND GONORRHEA, AMPLIFIED Routine 11/17/2019 1:45 PM EDT Well adult exam from Last 3 Months or Most Recently Relevant to Health Maintenance Results * Due to [place] [employer] law, this organization might not be sharing sensitive test results. * Chlamydia and Gonorrhoea, Amplified (11/17/2019 1:45 PM EDT) Chlamydia Trachomatis, DNA Probe NEGATIVE (NEG) [facility] Comment: No Chlamydia Trachomatis RNA detected in this patient's sample (REFERENCE RANGE/NORMAL VALUE: NOT DETECTED) Note: This test uses hand roller engraver- mediated amplification method to detect rRNA from C. Trachomatis URINE GC AMP PROBE NEGATIVE (NEG) [facility] Comment: No Neisseria Gonorrhoeae RNA detected in this patient's sample (REFERENCE RANGE/NORMAL VALUE: NOT DETECTED) NOTE: This test uses hand roller engraver-mediated amplification method to detect rRNA from N.Gonorrhoeae. A negative result does not preclude infection. In the case of a negative urine result, testing of an endocervical(female) or urethral (male) specimen is recommended if there is high clinical suspicion of infection. Due to very high sensitivity of Nucleic Acid Amplification Test, false positive results may occur. Therefore, specimen handling is extremely important. In patients in whom the disease is unlikely, additional sample for testing should be considered after an initial positive result. The performance characteristics of this test have not been evaluated in children. The Aptima Combo2 assay is not intended for the evaluation of suspected sexual abuse or for other medico-legal indications. The ordering provider should assess if the patient had consensual sex without risk of sexual abuse. Consult the [facility] if needed. Contact phone number . Therapeutic failure or success cannot be determined with the Aptima Combo2 assay since nucleic acid may persist following appropriate antimicrobial therapy. The Centers for Disease Control and Prevention (CDC) recommends confirmatory retesting using culture or a different nucleic acid amplification test when positive results occur, if indicated. Testing performed or reported by [facility], a Service of [facility], [address] [place] [address] Wade Ngueyn MD, Director Fixed Income Urine 11/17/2019 1:4 5 PM EDT 11/17/2019 9:00 PM EDT us Leeroy Gillis MD LAB MICROBIOLOGY - GENERAL O RDERABLES Final Result [facility] from Last 3 Months or Most Recently Relevant to Health Maintenance Insurance [facility] NON PCC [facility] NON PCC [facility] NON PCC
--- OUTSIDE RECORDS SUMMARY | 2025-03-24 18:32 | XMS_ITS | Encounter Summary ---
Author Organization [facility] Address [address] [place] [phone] Phone Care Team Providers Care Canine Deputy Name Role Phone Leeroy Gillis MD Primary Care Provider Encounter Details Date Type Department Care Team (Late st Contact Info) Description 09/16/2017 Conversion Encounter [facility] [address] [place] [address] Anderson Kuo DO [address] [place] [address] Social History Tobacco Use Types Packs/Day Years Used Date Smoking Tobacco: Never Assessed Comments Unknown Sex and Gender Information Value Date Recorded Sex Assigned at Not on file Legal Sex Female 1:46 PM EDT Gender Identity Not on file Sexual Orientation Not on file documented as of this encounter Plan of Treatment Not on file documented as of this encounter Visit Diagnoses Not on filedocumented in this encounter Care Teams Canine Deputy Relationship Specialty Start Date End Date Leeroy Gillis MD [address] [place] [address] PCP - General Pediatrics 11/22/20 06/08/24 documented as of this encounter
--- OUTSIDE RECORDS SUMMARY | 2025-03-24 18:32 | XMS_ITS | Clinical Summary ---
Author Organization [facility] Address [address] [place] [address] Phone Care Team Providers Care Pipe Coverer Name Role Phone Leeroy Gillis MD Primary Care Provider [phone] Leeroy Gillis MD Unavailable Leeroy Gillis MD Unavailable [phone] Medications acetaZOLAMIDE (Diamox) 250 mg tablet Dose: 750 mg, Dose Amount: 3 tab, PO, BID, Special Instructions: 750mg PO BID, Dispense Quantity: 540 tab, Refills: 3, Entered: 07/30/19 16:45:00 EDT, [facility]/pharmacy #[id number] 07/30/2019 Active ondansetron (Zofran) 4 mg tablet Dose: 4 mg, Dose Amount: 1 tab, PO, Q8hr, PRN Nausea/Vomiti ng, Refills: 3, Entered: 04/05/18 8:47:06 EST 04/05/2018 Active SUMAtriptan (Imitrex) 20 mg/actuation nasal spray Dose: 20 mg, Nasal, 1time, Dispense Quantity: 12 EA, Refills: 1, Entered: 04/05/18 9:41:58 EST 04/05/2018 Active Social History Tobacco Use Types Packs/Day Years [...] of Treatment Not on file Care Teams Pipe Coverer Relationship Specialty Start Date End Date Leeroy Gillis MD PCP - General 11/21/18 Leeroy Gillis MD PCP - Insurance PCP 06/06/21 Leeroy Gillis MD PCP - Clinical PCP 11/21/18
--- OUTSIDE RECORDS SUMMARY | 2025-03-24 18:32 | XMS_ITS | Encounter Summary ---
Author Organization [facility] Address [address] [place] [phone] Phone Care Team Providers Care Recreation Counselor Name Role Phone Leeroy Gillis MD Primary Care Provider [phone] Reason for Visit * Reason Onset Date Comments Med Refill 01/02/2022 Encounter Details Date Type Department Care Team ([facility] st Contact Info) Description 01/02/2022 [facility]ill [facility] [address] [address] Leeroy Gillis MD [address] [place] [phone] Attention deficit disorder (ADD) without hyperactivity Social [...] hyperactivity documented in this encounter Care Teams Recreation Counselor Relationship Specialty Start Date End Date Leeroy Gillis MD [address] [place] [address] PCP - General Pediatrics 11/22/20 06/08/24 documented as of this encounter
== END 2025-03-24 16:01 | disposition home or self-care (01) ==
LOC: HO.ENCR 14:44
PROVIDERS: PCP Nurse Practitioner Family; Visit Provider Student in an Organized Health Care Education/Training Program
DX: Z86.39 Personal history of other endocrine, nutritional and metabolic disease (principal); E66.01 Morbid (severe) obesity due to excess calories; Z68.43 Body mass index [BMI] 50.0-59.9, adult; E78.49 Other hyperlipidemia
CPT/HCPCS: 99214

== ENCOUNTER → 2025-03-24 14:43 | Outpatient (BNVA) | payer OTHER, SELFPAY | PROVIDERS: PCP Nurse Practitioner Family; Visit Provider Student in an Organized Health Care Education/Training Program | DX: E78.49 Other hyperlipidemia (principal); F32.9 Major depressive disorder, single episode, unspecified; E66.01 Morbid (severe) obesity due to excess calories; Z68.43 Body mass index [BMI] 50.0-59.9, adult; Z86.39 Personal history of other endocrine, nutritional and metabolic disease; Z79.899 Other long term (current) drug therapy | CPT/HCPCS: 99212 ==